=== PATIENT | male | born 1935 | race Caucasian/White ===

== ENCOUNTER 2019-10-28 06:43 | Day surgery (SDC) | payer MEDICARE ==
[~2019-10-28] VITALS: Ht 165.1 cm; Wt 73.6 kg
[~2019-10-28 06:43] MED LIST: ASPI325 PO; ATOR40TA PO; BUDE6HFA INH; CARV3.125 PO; CIPRO500 MG PO; CLOP75 PO; FERR325 PO; FINA5 PO; LISI5 PO; NITR.4SL SL; OXYB5 PO; PANT40 PO; PROAIR DIGIHAL90 MCG INH; Pyridium200 MG PO; SPIR25 PO
[2019-10-28] MEDS ORDERED: Nitroglycerin1 EAC3 TD (07:16)
--- NOTE | 2019-10-28 10:30 | NUR ---
10CC AIR REMOVED FROM TR BAND. -BLEEDING OR SWELLING.
--- NOTE | 2019-10-28 11:29 | NUR ---
R WRIST TR BAND REMOVED. PUNCTURE AREA CLEANED WITH NS AND CLOTH DOT DRSG PLACED. -BLEEDING OR SWELLING. R WRIST SPLINT REAPPLIED. IV REMOVED. PT VERBALIZED UNDERSTANDING OF WRITTEN AND VERBAL D/C INST. PT TAKEN OUT OF THE HRT CENTER VIA W/C.
== END 2019-10-28 13:13 | disposition home or self-care (01) ==
LOC: MHTC 06:43 → ORSCMMR 06:43 → MHTC 07:00
PROC: B201YZZ Plain Radiography of Multiple Coronary Arteries using Other Contrast (ICD-10-PCS; principal; 2019-10-28)
PROC: 4A023N7 Measurement of Cardiac Sampling and Pressure, Left Heart, Percutaneous Approach (ICD-10-PCS; principal; 2019-10-28)
DX: I25.119 Atherosclerotic heart disease of native coronary artery with unspecified angina pectoris (principal); Q24.5 Malformation of coronary vessels; J44.9 Chronic obstructive pulmonary disease, unspecified; Z79.82 Long term (current) use of aspirin; Z95.5 Presence of coronary angioplasty implant and graft; Z87.891 Personal history of nicotine dependence; Z79.899 Other long term (current) drug therapy
CPT/HCPCS: 93458; 99152; C1769; C1894; J1644; J2250; J3010; J7030; Q9967

== ENCOUNTER 2021-01-27 09:55 | Emergency (ER) | payer OTHER, MEDICARE ==
[~2021-01-27] VITALS: Ht 165.1 cm; Wt 73.0 kg
[~2021-01-27 09:55] MED LIST changes: -BUDE6HFA INH; +Nitroglycerin1 EAC3 TD; +SYMBICORT 16010.2 GM INH
[2021-01-27 10:38] LABS: BASOPHILS ABSOLUTE AUTO 0.01 K/mm3 (0.00-0.23); BASOPHILS PERCENT AUTO 0 % (0-2); EOSINOPHILS ABSOLUTE AUTO 0.06 K/mm3 (0.00-0.68); EOSINOPHILS PERCENT AUTO 1 % (0-6); Hematocrit 40.6 % (37.0-53.0); Hemoglobin 13.7 g/dL (13.5-17.5); IMMATURE GRAN ABSOLUTE AUTO 0.02 K/mm3 (0.00-0.10); IMMATURE GRAN PERCENT AUTO 0 % (0-1); LYMPHOCYTES ABSOLUTE AUTO 1.29 K/mm3 (0.84-5.20); LYMPHOCYTES PERCENT AUTO 22 % (21-46); MONOCYTES PERCENT AUTO 8 % (4-13); Mean Corpuscular HGB 32.8 pg (26.0-34.0); Mean Corpuscular HGB Conc 33.7 g/dL (31.5-36.5); Mean Corpuscular Volume 97 fL (80-100); Mean Platelet Volume 10.6 fL (9.1-12.4); NEUTROPHILS ABSOLUTE AUTO 4.13 K/mm3 (1.96-9.15); NEUTROPHILS PERCENT AUTO 69 % (41-73); Platelet Count 182 K/mm3 (150-400); RDW Coefficient Variation 13.2 % (11.7-14.2); RDW Standard Deviation 47.1 fL (35.1-46.3); Red Blood Cell Count 4.18 M/mm3 (4.30-5.90); White Blood Cell Count 6.01 K/mm3 (4.00-11.30)
[2021-01-27 10:55] LABS: Alanine Aminotransfer (ALT/SGP 24 U/L (12-78); Albumin, Blood 3.6 g/dL (3.4-5.0); Alk Phos 67 U/L (50-136); Anion Gap 5 mmol/L (6-16); Aspartate Aminotrans (AST/SGOT 11 U/L (12-37); Bilirubin, Total 0.7 mg/dL (0.1-1.0); Blood Urea Nitrogen 23 mg/dL (8-24); CO2, Blood 25 mmol/L (21-32); Calcium, Blood 8.8 mg/dL (8.5-10.1); Chloride, Blood 109 mmol/L (98-108); Creatinine, Blood 1.44 mg/dL (0.60-1.20); Globulin, Blood 3.6 g/dL (2.2-4.0); Glomerular Filtration Rate 50 (60-); Glucose, Blood 115 mg/dL (70-99); Potassium, Blood 4.2 mmol/L (3.5-5.5); Sodium, Blood 139 mmol/L (136-145); Total Protein, Blood 7.2 g/dL (6.4-8.2); Troponin I <0.015 ng/mL (0.000-0.040)
[2021-01-27] MEDS ORDERED: AZIT500 PO (12:57)
[2021-01-27 13:49] LABS: Adenovirus Not Detected (NOT DETECT); Bordetella pertussis Not Detected (NOT DETECT); Chlamydophila pneumoniae Not Detected (NOT DETECT); Coronavirus 229E Not Detected (NOT DETECT); Coronavirus HKU1 Not Detected (NOT DETECT); Coronavirus NL63 Not Detected (NOT DETECT); Coronavirus OC43 Not Detected (NOT DETECT); Human Metapneumovirus Not Detected (NOT DETECT); Human Rhinovirus/Enterovirus Not Detected (NOT DETECT); Influenza A/2009-H1 Not Detected (NOT DETECT); Influenza A/H1 Not Detected (NOT DETECT); Influenza A/H3 Not Detected (NOT DETECT); Influenza B Not Detected (NOT DETECT); Mycoplasma pneumoniae Not Detected (NOT DETECT); Parainfluenza Virus 1 Not Detected (NOT DETECT); Parainfluenza Virus 2 Not Detected (NOT DETECT); Parainfluenza Virus 3 Not Detected (NOT DETECT); Parainfluenza Virus 4 Not Detected (NOT DETECT); Respiratory Syncytial Virus Not Detected (NOT DETECT); SARS-Cov-2 (COVID-19), BioFire Not Detected (NOT DETECT)
== END 2021-01-27 14:00 | disposition home or self-care (01) ==
LOC: ER 09:55
PROVIDERS: Emergency Medicine; Physician Assistant
DX: R42 Dizziness and giddiness (principal); Z79.82 Long term (current) use of aspirin; Z79.899 Other long term (current) drug therapy; Z20.822 Contact with and (suspected) exposure to COVID-19
CPT/HCPCS: 0202U; 36415; 70450; 71046; 80053; 84484; 85025; 93005; 93010; 96365; 99284-25; A9270; J0696

== ENCOUNTER 2021-04-03 06:51 | Day surgery (SDC) | payer MEDICARE ==
[~2021-04-03] VITALS: Ht 167.6 cm; Wt 73.0 kg
[~2021-04-03 06:51] MED LIST changes: +AZIT500 PO
--- NOTE | 2021-04-03 11:13 | NUR ---
ANCEF 1G IVPB GIVEN.
--- NOTE | 2021-04-03 13:18 | NUR ---
PT C/O CHEST DISCOMFORT AT INCISION SITE, TYLENOL #3 GIVEN 2 TABS PER ORDERS.
--- NOTE | 2021-04-03 14:25 | NUR ---
DR IN TO SEE PATIENT. PRESSURE DRESSING REMOVED BY SOME SWELLING NOTED. NEW PRESSURE DRESSING APPLIED AND PT TO TAKE PRESSURE DRESSING OFF TOMORROW.
--- NOTE | 2021-04-03 14:32 | NUR ---
PT DRESSED WITH MINIMAL ASSIST FOR TOP. UP TO BATHROOM AT THIS TIME. SALINE LOCK REMOVED WITH CATHETER INTACT. PT R ARM PLACED IN SLING.
--- NOTE | 2021-04-03 14:48 | NUR ---
DISCHARGE INSTRUCTIONS REVIEWED WITH PT, VERBALIZES UNDERSTANDING. PT DAUGHTER AT ENTRANCE TO PICK PT UP, INSTRUCTIONS REVIEWED WITH HER WELL. PT INSTRUCTED NO DRIVING UNTIL AT THE VERY LEAST WOUND CHECK APPOINTMENT. PT STATES HE HAS THINGS TO DO, RE-DIRECTION GIVEN ON NO DRIVING. PT TO PRIVATE VEHICLE PER W/C WITH ONE STAFF.
== END 2021-04-03 14:45 | disposition home or self-care (01) ==
LOC: MHTC 06:51
DX: I49.5 Sick sinus syndrome (principal); R55 Syncope and collapse; I25.118 Atherosclerotic heart disease of native coronary artery with other forms of angina pectoris; I11.9 Hypertensive heart disease without heart failure; F17.210 Nicotine dependence, cigarettes, uncomplicated; J44.9 Chronic obstructive pulmonary disease, unspecified; Z95.5 Presence of coronary angioplasty implant and graft
CPT/HCPCS: 33208; 71046; 76937; 99152; 99153; A9270; C1769; C1781; C1785; C1898; J0690; J1644; J2250; J3010; J7030; J7040

== ENCOUNTER 2021-04-16 09:46 | Observation (INO) | payer MEDICARE ==
[~2021-04-16] VITALS: Ht 167.6 cm; Wt 73.5 kg
[~2021-04-16 09:46] MED LIST changes: -FERR325 PO; +FERSU300 PO
[2021-04-16 10:41] LABS: BASOPHILS ABSOLUTE AUTO 0.01 K/mm3 (0.00-0.23); BASOPHILS PERCENT AUTO 0 % (0-2); EOSINOPHILS ABSOLUTE AUTO 0.06 K/mm3 (0.00-0.68); EOSINOPHILS PERCENT AUTO 1 % (0-6); Hematocrit 42.3 % (37.0-53.0); Hemoglobin 14.1 g/dL (13.5-17.5); IMMATURE GRAN ABSOLUTE AUTO 0.03 K/mm3 (0.00-0.10); IMMATURE GRAN PERCENT AUTO 0 % (0-1); LYMPHOCYTES ABSOLUTE AUTO 1.14 K/mm3 (0.84-5.20); LYMPHOCYTES PERCENT AUTO 12 % (21-46); MONOCYTES ABSOLUTE AUTO 0.61 K/mm3 (0.16-1.47); MONOCYTES PERCENT AUTO 6 % (4-13); Mean Corpuscular HGB 32.6 pg (26.0-34.0); Mean Corpuscular HGB Conc 33.3 g/dL (31.5-36.5); Mean Corpuscular Volume 98 fL (80-100); Mean Platelet Volume 9.8 fL (9.1-12.4); NEUTROPHILS ABSOLUTE AUTO 7.61 K/mm3 (1.96-9.15); NEUTROPHILS PERCENT AUTO 81 % (41-73); Platelet Count 214 K/mm3 (150-400); RDW Coefficient Variation 13.1 % (11.7-14.2); RDW Standard Deviation 47.1 fL (35.1-46.3); Red Blood Cell Count 4.33 M/mm3 (4.30-5.90); White Blood Cell Count 9.46 K/mm3 (4.00-11.30)
[2021-04-16 10:53] LABS: Alanine Aminotransfer (ALT/SGP 31 U/L (12-78); Albumin, Blood 3.1 g/dL (3.4-5.0); Albumin/Globulin Ratio 0.8 (0.8-1.8); Alk Phos 72 U/L (50-136); Anion Gap 4 mmol/L (6-16); Aspartate Aminotrans (AST/SGOT 19 U/L (12-37); Bilirubin, Total 0.5 mg/dL (0.1-1.0); Blood Urea Nitrogen 21 mg/dL (8-24); Bun/Creatinine Ratio 17.2 (12.0-20.0); CO2, Blood 26 mmol/L (21-32); Calcium, Blood 8.7 mg/dL (8.5-10.1); Chloride, Blood 111 mmol/L (98-108); Creatinine, Blood 1.22 mg/dL (0.60-1.20); Globulin, Blood 4.1 g/dL (2.2-4.0); Glomerular Filtration Rate 57 (60-); Glucose, Blood 114 mg/dL (70-99); Potassium, Blood 4.2 mmol/L (3.5-5.5); Sodium, Blood 141 mmol/L (136-145); Total Protein, Blood 7.2 g/dL (6.4-8.2); Troponin I <0.015 ng/mL (0.000-0.040)
[2021-04-16] MEDS ORDERED: LISINOPRIL2.5 MG PO (15:54)
[2021-04-16] MEDS ORDERED: Nitroglycerin1 EACH TOP (15:55)
[2021-04-16] MEDS ORDERED: PANTOPRAZOLE SO40 M2 PO (15:55)
--- NOTE | 2021-04-16 18:39 | NUR ---
SHIFT SUMMARY: PATIENT ADMIT FROM ED THIS SHIFT. PT A^O; CALM AND COOPERATIVE WITH CARE. NO C/O PAIN SINCE ARRIVAL ON MEDICAL FLOOR. TELE IN PLACE; SR @ 65 PER SPORTS EDITOR. WCTM.
[2021-04-17 05:14] LABS: BASOPHILS ABSOLUTE AUTO 0.02 K/mm3 (0.00-0.23); BASOPHILS PERCENT AUTO 0 % (0-2); EOSINOPHILS ABSOLUTE AUTO 0.12 K/mm3 (0.00-0.68); EOSINOPHILS PERCENT AUTO 2 % (0-6); Hematocrit 37.3 % (37.0-53.0); Hemoglobin 12.5 g/dL (13.5-17.5); IMMATURE GRAN ABSOLUTE AUTO 0.03 K/mm3 (0.00-0.10); IMMATURE GRAN PERCENT AUTO 0 % (0-1); LYMPHOCYTES ABSOLUTE AUTO 1.35 K/mm3 (0.84-5.20); LYMPHOCYTES PERCENT AUTO 20 % (21-46); MONOCYTES PERCENT AUTO 9 % (4-13); Mean Corpuscular HGB 32.6 pg (26.0-34.0); Mean Corpuscular HGB Conc 33.5 g/dL (31.5-36.5); Mean Corpuscular Volume 97 fL (80-100); Mean Platelet Volume 10.1 fL (9.1-12.4); NEUTROPHILS ABSOLUTE AUTO 4.81 K/mm3 (1.96-9.15); NEUTROPHILS PERCENT AUTO 69 % (41-73); Platelet Count 181 K/mm3 (150-400); RDW Coefficient Variation 13.2 % (11.7-14.2); RDW Standard Deviation 46.8 fL (35.1-46.3); Red Blood Cell Count 3.83 M/mm3 (4.30-5.90); White Blood Cell Count 6.93 K/mm3 (4.00-11.30)
[2021-04-17 05:23] LABS: Bun/Creatinine Ratio 21.6 (12.0-20.0); Calcium, Blood 8.7 mg/dL (8.5-10.1); Creatinine, Blood 1.34 mg/dL (0.60-1.20); Magnesium, Blood 2.3 mg/dL (1.6-2.4); Potassium, Blood 4.2 mmol/L (3.5-5.5)
--- NOTE | 2021-04-17 05:44 | NUR ---
SHIFT SUMMARY PATIENT ALERT AND ORIENTED. HAS HAD INTERMITTENT CHEST PAIN OVERNIGHT. NO COMPLAINTS OF SHORTNESS OF BREATH. PATIENT SLEPT WELL. IV PATENT AND FLUSHED. BED IN LOWEST POSITION WITH WHEELS LOCKED. CALL LIGHT WITHIN REACH. REPORT GIVEN TO ONCOMING RN.
--- NOTE | 2021-04-17 17:18 | NUR ---
SHIFT SUMMARY PATIENT DENIES PAIN AT REST, REPORTS OCCASSIONAL SHARP PAIN IN LEFT CHEST THAT RADIATES TO LOWER RIBS. DENIES NASUEA AND SHORTNESS OF BREATH. PATIENT INDEPENDENT IN ROOM. PATIENT NOW ON A REGULAR DIET. DR. SIERRA CONSULTED. PATIENT TAKEN FOR CHEST CT AT 1730.
--- NOTE | 2021-04-17 18:57 | NUR ---
RECEIVED REPORT AND ASSUMED CARE OF PT. HE IS LYING IN BED, AWAKE, ALERT AND ORIENTED. DENIES ANY NEEDS AT THIS TIME. WCABDIRIZAK.
--- NOTE | 2021-04-18 06:25 | NUR ---
SHIFT SUMMARY: CL IS A&OX4. VSS, NO ACUTE EVENTS OVERNIGHT. HE IS INDEPENDENT IN THE ROOM. HE CONTINUES TO COMPLAIN OF CHEST PAIN BUT REPORTS THAT THE APAP DID HELP ALLEVIATE THE PAIN AND WONDERS IF IT IS MUSCLE PAIN AND IF A MUSCLE RELAXER MIGHT HELP. HE IS URINATING WITHOUT DIFFICULTY, TOLERATING PO INTAKE WELL, AND HAS NOT HAD ANY EVENTS ON TELEMETRY THIS SHIFT. HE IS LYING IN BED WITH THE CALL LIGHT IN REACH. WILL REPORT TO DAY SHIFT RN.
--- NOTE | 2021-04-18 18:28 | NUR ---
PT QUITE PLEASANT TODAY. TRIED TYLENOL LAST SHIFT, NAPROXEN THIS AM, AND MOBIC THIS AFT. PT REPORTS NO IMPROVEMENT ON PAIN. STATES REMAINS OKAY OVERALL, BUT CONTINUES TO HAVE SHARP STABBING PAINS IF/WHEN TRIES TO SIT UP. TRIED THIS WITH HAVING THE BED USE ALL THE LIFTING, PT NOT USING MUSCLES. STATES STILL DOES HAVE PAIN WITH SITTING UP. NO NEW CONCERNS NOTED BED IN LOW POSITION, CALL LITE IN REACH, CALLS APPROP
--- NOTE | 2021-04-19 05:46 | NUR ---
SHIFT SUMMARY- PT. A&OX4, PLEASANT AND COOPERATIVE WITH CARE, AMBULATORY IN THE ROOM. HAD COMPLAINTS OF L SIDED CHEST PAIN 12/22. MEDICATED WITH TYLENOL PER EMAR. PT. REPORTED GOOD RELIEF. APPEARED TO HAVE RESTED COMFORTABLY T/O THE NIGHT, NO APPARENT DISTRESS NOTED AND DENIED ANY NEEDS. THIS AM REQUESTED PAIN MED FOR MINIMAL PAIN, NAPROXEN GIVEN PER EMAR. PT. RESTING QUIETLY IN BED, VSS. CALL LIGHT WITHIN REACH AND SIDE RAILS UPX2. WILL CONT TO MONITOR.
[2021-04-19 05:51] LABS: BASOPHILS ABSOLUTE AUTO 0.03 K/mm3 (0.00-0.23); BASOPHILS PERCENT AUTO 1 % (0-2); EOSINOPHILS ABSOLUTE AUTO 0.13 K/mm3 (0.00-0.68); EOSINOPHILS PERCENT AUTO 2 % (0-6); Hematocrit 37.4 % (37.0-53.0); Hemoglobin 12.6 g/dL (13.5-17.5); IMMATURE GRAN ABSOLUTE AUTO 0.01 K/mm3 (0.00-0.10); IMMATURE GRAN PERCENT AUTO 0 % (0-1); LYMPHOCYTES ABSOLUTE AUTO 1.19 K/mm3 (0.84-5.20); LYMPHOCYTES PERCENT AUTO 20 % (21-46); MONOCYTES ABSOLUTE AUTO 0.51 K/mm3 (0.16-1.47); MONOCYTES PERCENT AUTO 9 % (4-13); Mean Corpuscular HGB 32.5 pg (26.0-34.0); Mean Corpuscular HGB Conc 33.7 g/dL (31.5-36.5); Mean Corpuscular Volume 96 fL (80-100); Mean Platelet Volume 10.6 fL (9.1-12.4); NEUTROPHILS ABSOLUTE AUTO 3.97 K/mm3 (1.96-9.15); NEUTROPHILS PERCENT AUTO 68 % (41-73); Platelet Count 195 K/mm3 (150-400); RDW Standard Deviation 46.1 fL (35.1-46.3); Red Blood Cell Count 3.88 M/mm3 (4.30-5.90); White Blood Cell Count 5.84 K/mm3 (4.00-11.30)
[2021-04-19 06:11] LABS: Bun/Creatinine Ratio 19.2 (12.0-20.0); Calcium, Blood 8.3 mg/dL (8.5-10.1); Creatinine, Blood 1.25 mg/dL (0.60-1.20); Potassium, Blood 4.3 mmol/L (3.5-5.5)
--- NOTE | 2021-04-19 10:33 | NUR ---
PT STATES PAIN ONLY SLIGHTLY BETTER THAN YEST. COMES AND GOES. UNDER L NIPPLE FOR AREA. PRESENTS MOSTLY WHEN HE SITS UP . WHEN AT REST MOSTLY NOT AWARE OF MUCH PAIN. NO FEELING OF HEART PAIN, PRESSURE. PER TELE, S ZAIRA AT 59. SOME OCC PACER SPIKES. LUNGS CLEAR, RESP EASY, UNLABORED. ON R.A. BT X4 LAST BM TODAY, STATES NORMAL . VIODS BATHROOM. INDEPENDANT ON ROOM. BED IN LOW POSITION, CALL LITE IN REACH, CALLS APPROP
[2021-04-19] MEDS ORDERED: NAPR500 PO (14:59)
[2021-04-19] MEDS ORDERED: ASPI81CH PO (15:03)
--- NOTE | 2021-04-19 15:49 | NUR ---
PT DISCHARGE REVIEWED DC INTRUCTIONS WITH PT- PT VERB UNDERSTANDING. NEW MEDS FAXED TO [facility]. PT BELONGINGS WITH PT. PT DECLINES WC RIDE OUT. AMBULATES IND TO PRIVATE VEHICLE ESCORTED BY THIS RN TO DOORS.
--- NOTE | 2021-04-19 16:26 | NUR ---
Update 04/19/21: Per chart review with Dr. Knight, pt. appropriate for discharge today. Discussed discharge planning with pt. He has transportation home from family and someone to pickler helper medications. He denies barriers to discharge or concerns with care. No additional needs. Pt. is scheduled for a hospital f/u appointment on 04/23/21 at 12:20 PM. with Elaina JORDAN.
== END 2021-04-19 15:47 | disposition home or self-care (01) ==
LOC: ER 09:46 → MEDS 09:47 → ER 17:13 → MEDS 17:13 → ENPENDDIS 04-19 14:22 → MEDS 04-19 15:47
PROVIDERS: Physician Assistant; ADMIT Internal Medicine
DX: R07.89 Other chest pain (principal); I12.9 Hypertensive chronic kidney disease with stage 1 through stage 4 chronic kidney disease, or unspecified chronic kidney disease; N17.9 Acute kidney failure, unspecified; N18.30 Chronic kidney disease, stage 3 unspecified; I25.10 Atherosclerotic heart disease of native coronary artery without angina pectoris; I25.2 Old myocardial infarction; I49.5 Sick sinus syndrome; E78.5 Hyperlipidemia, unspecified; J44.9 Chronic obstructive pulmonary disease, unspecified; Z95.5 Presence of coronary angioplasty implant and graft; J94.8 Other specified pleural conditions; Z45.010 Encounter for checking and testing of cardiac pacemaker pulse generator [battery]; Z79.82 Long term (current) use of aspirin; Z95.820 Peripheral vascular angioplasty status with implants and grafts; Z77.090 Contact with and (suspected) exposure to asbestos; Z66 Do not resuscitate; Z87.891 Personal history of nicotine dependence
CPT/HCPCS: 36415; 71046; 71260; 80048; 80053; 83690; 83735; 83880; 84484; 85025; 93005; 93010; 93308; 93321; 96372; 96374; 99285-25; A9270; G0378; J1650; J1885; J7030; Q9967

== ENCOUNTER 2021-06-05 10:22 | Day surgery (SDC) | payer MEDICARE ==
[~2021-06-05] VITALS: Ht 167.6 cm; Wt 74.0 kg
[~2021-06-05 10:22] MED LIST changes: +ASPI81CH PO; +LISINOPRIL2.5 MG PO; +NAPR500 PO; +Nitroglycerin1 EACH TOP; +PANTOPRAZOLE SO40 M2 PO
[2021-06-05] MEDS ORDERED: NITRO-DUR1 EAC1 TOP (12:33)
--- NOTE | 2021-06-05 12:43 | NUR ---
CALL LIGHT IN REACH.
--- NOTE | 2021-06-05 18:20 | NUR ---
ECHO AND CT OF CHEST COMPLETED. CD OF ECHO AND LEAD REVISION [facility] CALLED AT 1750. FACE SHEET AND COVID TEST RESULTS FAXED TO [facility].
--- NOTE | 2021-06-05 18:25 | NUR ---
REPORT CALLED TO GUERITA AT [facility]. [facility] HERE TO TRANSFER TO [facility]. CHART CD AND TRANSFER SUMMARY SENT WITH PATIENT.
== END 2021-06-05 18:35 | disposition short-term general hospital (02) ==
LOC: MHTC 10:22
DX: T82.110A Breakdown (mechanical) of cardiac electrode, initial encounter (principal); I49.5 Sick sinus syndrome; I25.10 Atherosclerotic heart disease of native coronary artery without angina pectoris; I25.2 Old myocardial infarction; J44.9 Chronic obstructive pulmonary disease, unspecified; J92.9 Pleural plaque without asbestos; I10 Essential (primary) hypertension; E78.5 Hyperlipidemia, unspecified; Z95.820 Peripheral vascular angioplasty status with implants and grafts; Z95.5 Presence of coronary angioplasty implant and graft; Y71.2 Prosthetic and other implants, materials and accessory cardiovascular devices associated with adverse incidents; Z87.891 Personal history of nicotine dependence
CPT/HCPCS: 33215; 71250; 93308; 99152; 99153; J0690; J1644; J2250; J3010; J7030; J7040

== ENCOUNTER 2021-06-26 14:13 | Emergency (ER) | payer MEDICARE ==
[~2021-06-26] VITALS: Ht 165.1 cm; Wt 73.9 kg
[~2021-06-26 14:13] MED LIST changes: +NITRO-DUR1 EAC1 TOP
[2021-06-26] MEDS ORDERED: TRAZ50 PO (14:51)
[2021-06-26] MEDS ORDERED: PANTOPRAZOLE SO40 M2 PO (14:52)
[2021-06-26 14:53] LABS: BASOPHILS ABSOLUTE AUTO 0.02 K/mm3 (0.00-0.23); BASOPHILS PERCENT AUTO 0 % (0-2); EOSINOPHILS ABSOLUTE AUTO 0.01 K/mm3 (0.00-0.68); EOSINOPHILS PERCENT AUTO 0 % (0-6); Hematocrit 38.1 % (37.0-53.0); IMMATURE GRAN ABSOLUTE AUTO 0.03 K/mm3 (0.00-0.10); IMMATURE GRAN PERCENT AUTO 0 % (0-1); LYMPHOCYTES ABSOLUTE AUTO 0.93 K/mm3 (0.84-5.20); LYMPHOCYTES PERCENT AUTO 11 % (21-46); MONOCYTES ABSOLUTE AUTO 0.55 K/mm3 (0.16-1.47); MONOCYTES PERCENT AUTO 7 % (4-13); Mean Corpuscular HGB 33.1 pg (26.0-34.0); Mean Corpuscular HGB Conc 34.1 g/dL (31.5-36.5); Mean Corpuscular Volume 97 fL (80-100); Mean Platelet Volume 10.2 fL (9.1-12.4); NEUTROPHILS ABSOLUTE AUTO 6.76 K/mm3 (1.96-9.15); NEUTROPHILS PERCENT AUTO 82 % (41-73); Platelet Count 167 K/mm3 (150-400); RDW Coefficient Variation 13.2 % (11.7-14.2); RDW Standard Deviation 47.9 fL (35.1-46.3); Red Blood Cell Count 3.93 M/mm3 (4.30-5.90)
[2021-06-26] MEDS ORDERED: Lisinopril2.5 MG PO (14:54)
[2021-06-26 15:12] LABS: Alanine Aminotransfer (ALT/SGP 19 U/L (12-78); Albumin/Globulin Ratio 0.9 (0.8-1.8); Alk Phos 62 U/L (50-136); Anion Gap 7 mmol/L (6-16); Aspartate Aminotrans (AST/SGOT 11 U/L (12-37); Bilirubin, Total 0.6 mg/dL (0.1-1.0); Blood Urea Nitrogen 31 mg/dL (8-24); Bun/Creatinine Ratio 16.8 (12.0-20.0); CO2, Blood 23 mmol/L (21-32); Calcium, Blood 8.7 mg/dL (8.5-10.1); Chloride, Blood 112 mmol/L (98-108); Creatinine, Blood 1.85 mg/dL (0.60-1.20); Globulin, Blood 3.5 g/dL (2.2-4.0); Glomerular Filtration Rate 35 (60-); Glucose, Blood 126 mg/dL (70-99); Sodium, Blood 142 mmol/L (136-145); Total Protein, Blood 6.5 g/dL (6.4-8.2); Troponin I <0.015 ng/mL (0.000-0.040)
== END 2021-06-26 20:25 | disposition home or self-care (01) ==
LOC: ER 14:13
PROVIDERS: Emergency Medicine
DX: R55 Syncope and collapse (principal); R00.0 Tachycardia, unspecified; I25.10 Atherosclerotic heart disease of native coronary artery without angina pectoris; J44.9 Chronic obstructive pulmonary disease, unspecified; E78.5 Hyperlipidemia, unspecified; I25.2 Old myocardial infarction; Z87.891 Personal history of nicotine dependence; Z79.82 Long term (current) use of aspirin; Z79.899 Other long term (current) drug therapy; Z95.0 Presence of cardiac pacemaker
CPT/HCPCS: 36415; 71045; 80053; 83880; 84484; 85025; 93005; 93010; 96360; 99285-25; J7030

== ENCOUNTER 2024-04-10 13:12 | Emergency (ER) | payer MEDICARE ==
[~2024-04-10] VITALS: Ht 172.7 cm; Wt 79.4 kg
[~2024-04-10 13:12] MED LIST changes: +Lisinopril2.5 MG PO; +TRAZ50 PO
[2024-04-10] MEDS ORDERED: NS 1,000 ML IV SCH (14:00)
[2024-04-10 14:07] LABS: BASOPHILS ABSOLUTE AUTO 0.03 K/mm3 (0.00-0.23); BASOPHILS PERCENT AUTO 0 % (0-2); EOSINOPHILS ABSOLUTE AUTO 0.04 K/mm3 (0.00-0.68); EOSINOPHILS PERCENT AUTO 0 % (0-6); Hematocrit 40.8 % (37.0-53.0); Hemoglobin 14.1 g/dL (13.5-17.5); IMMATURE GRAN ABSOLUTE AUTO 0.04 K/mm3 (0.00-0.10); IMMATURE GRAN PERCENT AUTO 0 % (0-1); LYMPHOCYTES ABSOLUTE AUTO 0.97 K/mm3 (0.84-5.20); LYMPHOCYTES PERCENT AUTO 11 % (21-46); MONOCYTES ABSOLUTE AUTO 0.68 K/mm3 (0.16-1.47); MONOCYTES PERCENT AUTO 8 % (4-13); Mean Corpuscular HGB 32.7 pg (26.0-34.0); Mean Corpuscular HGB Conc 34.6 g/dL (31.5-36.5); Mean Corpuscular Volume 95 fL (80-100); NEUTROPHILS ABSOLUTE AUTO 7.36 K/mm3 (1.96-9.15); NEUTROPHILS PERCENT AUTO 81 % (41-73); Platelet Count 167 K/mm3 (150-400); RDW Coefficient Variation 13.2 % (11.7-14.2); RDW Standard Deviation 46.3 fL (35.1-46.3); Red Blood Cell Count 4.31 M/mm3 (4.30-5.90); White Blood Cell Count 9.12 K/mm3 (4.00-11.30)
[2024-04-10 14:20] VITALS: BP 98/68
[2024-04-10 14:23] LABS: Albumin, Blood 3.5 g/dL (3.4-5.0); Albumin/Globulin Ratio 1.1 (0.8-1.8); Bilirubin, Total 0.6 mg/dL (0.1-1.0); Bun/Creatinine Ratio 22.5 (12.0-20.0); Creatinine, Blood 1.42 mg/dL (0.60-1.20); Globulin, Blood 3.1 g/dL (2.2-4.0); Potassium, Blood 4.9 mmol/L (3.5-5.5); Total Protein, Blood 6.6 g/dL (6.4-8.2)
[2024-04-10 15:21] LABS: Source, Urine Voided
[2024-04-10 15:24] LABS: Appearance, Urine Clear (Clear); Bilirubin, Urine Neg (Neg); Blood, Urine 2+ (Neg); Color, Urine Yellow (P-Yellow); Glucose Qualitative, Urine Neg (Neg); Ketones, Urine Neg (Neg); Leukocyte Esterase, Urine Neg (Neg); Nitrite, Urine Neg (Neg); Protein, Urine Neg (Neg); Specific Gravity, Urine 1.015 (1.003-1.022); Urobilinogen, Urine NORM (Normal)
[2024-04-10 15:31] LABS: Bacteria Not Seen /hpf; Squamous Epithelial Cells Not Seen /hpf (Few); White Blood Cells, Urine 0-2 /hpf (0-5)
== END 2024-04-10 15:48 | disposition home or self-care (01) ==
LOC: ER 13:12
PROVIDERS: Emergency Medicine
DX: R53.1 Weakness (principal); E86.0 Dehydration; N18.9 Chronic kidney disease, unspecified; J44.9 Chronic obstructive pulmonary disease, unspecified; E78.5 Hyperlipidemia, unspecified; I25.2 Old myocardial infarction; Z87.891 Personal history of nicotine dependence; Z79.82 Long term (current) use of aspirin; Z79.899 Other long term (current) drug therapy
CPT/HCPCS: 80053; 81001; 83735; 85025; 93005; 93010; 96360; 99284-25; J7030

== ENCOUNTER 2024-07-10 17:58 | Emergency (ER) | payer MEDICARE ==
[~2024-07-10] VITALS: Ht 167.6 cm; Wt 72.6 kg
[2024-07-10 18:28] LABS: BASOPHILS ABSOLUTE AUTO 0.03 K/mm3 (0.00-0.23); BASOPHILS PERCENT AUTO 0 % (0-2); EOSINOPHILS ABSOLUTE AUTO 0.11 K/mm3 (0.00-0.68); EOSINOPHILS PERCENT AUTO 1 % (0-6); Hematocrit 40.9 % (37.0-53.0); IMMATURE GRAN ABSOLUTE AUTO 0.03 K/mm3 (0.00-0.10); IMMATURE GRAN PERCENT AUTO 0 % (0-1); LYMPHOCYTES ABSOLUTE AUTO 1.02 K/mm3 (0.84-5.20); LYMPHOCYTES PERCENT AUTO 10 % (21-46); MONOCYTES ABSOLUTE AUTO 0.64 K/mm3 (0.16-1.47); MONOCYTES PERCENT AUTO 6 % (4-13); Mean Corpuscular HGB 32.6 pg (26.0-34.0); Mean Corpuscular HGB Conc 34.2 g/dL (31.5-36.5); Mean Corpuscular Volume 95 fL (80-100); Mean Platelet Volume 9.3 fL (9.1-12.4); NEUTROPHILS ABSOLUTE AUTO 8.66 K/mm3 (1.96-9.15); NEUTROPHILS PERCENT AUTO 83 % (41-73); Platelet Count 178 K/mm3 (150-400); RDW Coefficient Variation 13.3 % (11.7-14.2); White Blood Cell Count 10.49 K/mm3 (4.00-11.30)
[2024-07-10] MEDS ORDERED: STIOLTO RESPIMAT4 G1 IH (18:38)
[2024-07-10] MEDS ORDERED: TAMS.4ER PO (18:38)
[2024-07-10 18:47] LABS: Albumin, Blood 3.3 g/dL (3.4-5.0); Albumin/Globulin Ratio 1.1 (0.8-1.8); Bilirubin, Total 1.1 mg/dL (0.1-1.0); Bun/Creatinine Ratio 13.6 (12.0-20.0); Calcium, Blood 8.3 mg/dL (8.5-10.1); Creatinine, Blood 1.25 mg/dL (0.60-1.20); Globulin, Blood 3.1 g/dL (2.2-4.0); Potassium, Blood 4.3 mmol/L (3.5-5.5); Total Protein, Blood 6.4 g/dL (6.4-8.2)
[2024-07-10 19:30] VITALS: BP 155/72
== END 2024-07-10 19:38 | disposition home or self-care (01) ==
LOC: ER 17:58
PROVIDERS: Emergency Medicine
DX: R07.89 Other chest pain (principal); R55 Syncope and collapse; J44.9 Chronic obstructive pulmonary disease, unspecified; E78.5 Hyperlipidemia, unspecified; Z87.891 Personal history of nicotine dependence; Z79.82 Long term (current) use of aspirin; Z79.899 Other long term (current) drug therapy
CPT/HCPCS: 71046; 80053; 84484; 85025; 93005; 93010; 99284-25

== ENCOUNTER 2024-08-10 13:10 | Emergency (ER) | payer MEDICARE, OTHER ==
[~2024-08-10] VITALS: Ht 172.7 cm; Wt 72.6 kg
[~2024-08-10 13:10] MED LIST changes: +STIOLTO RESPIMAT4 G1 IH; +TAMS.4ER PO
[2024-08-10 13:49] LABS: BASOPHILS ABSOLUTE AUTO 0.02 K/mm3 (0.00-0.23); BASOPHILS PERCENT AUTO 0 % (0-2); EOSINOPHILS ABSOLUTE AUTO 0.06 K/mm3 (0.00-0.68); EOSINOPHILS PERCENT AUTO 1 % (0-6); Hematocrit 39.6 % (37.0-53.0); Hemoglobin 13.4 g/dL (13.5-17.5); IMMATURE GRAN ABSOLUTE AUTO 0.03 K/mm3 (0.00-0.10); IMMATURE GRAN PERCENT AUTO 0 % (0-1); LYMPHOCYTES ABSOLUTE AUTO 0.81 K/mm3 (0.84-5.20); LYMPHOCYTES PERCENT AUTO 10 % (21-46); MONOCYTES ABSOLUTE AUTO 0.51 K/mm3 (0.16-1.47); MONOCYTES PERCENT AUTO 6 % (4-13); Mean Corpuscular HGB 32.7 pg (26.0-34.0); Mean Corpuscular HGB Conc 33.8 g/dL (31.5-36.5); Mean Corpuscular Volume 97 fL (80-100); Mean Platelet Volume 10.3 fL (9.1-12.4); NEUTROPHILS ABSOLUTE AUTO 6.57 K/mm3 (1.96-9.15); NEUTROPHILS PERCENT AUTO 82 % (41-73); Platelet Count 176 K/mm3 (150-400); RDW Coefficient Variation 13.5 % (11.7-14.2)
[2024-08-10 13:56] LABS: Bun/Creatinine Ratio 11.8 (12.0-20.0); Creatinine, Blood 1.27 mg/dL (0.60-1.20); Potassium, Blood 4.6 mmol/L (3.5-5.5)
[2024-08-10 14:30] VITALS: BP 140/68
== END 2024-08-10 14:42 | disposition home or self-care (01) ==
LOC: ER 13:10
PROVIDERS: Student in an Organized Health Care Education/Training Program
DX: R55 Syncope and collapse (principal); J44.9 Chronic obstructive pulmonary disease, unspecified; E78.5 Hyperlipidemia, unspecified; Z87.891 Personal history of nicotine dependence; Z79.82 Long term (current) use of aspirin; Z79.899 Other long term (current) drug therapy
CPT/HCPCS: 80048; 85025; 93005; 93010; 99284-25

== ENCOUNTER → 2024-08-24 | Outpatient (CLI) | payer MEDICARE, OTHER ==
[2024-08-25 15:34] LABS: Appearance, Urine Clear (Clear); Bilirubin, Urine Neg (Neg); Blood, Urine Neg (Neg); Glucose Qualitative, Urine Neg (Neg); Ketones, Urine Neg (Neg); Leukocyte Esterase, Urine Neg (Neg); Nitrite, Urine Neg (Neg); Protein, Urine Neg (Neg); Specific Gravity, Urine 1.005 (1.003-1.022); Urobilinogen, Urine NORM (Normal)
[2024-08-25 15:46] LABS: Color, Urine Pale Yellow (P-Yellow)
== END | disposition home or self-care (01) ==
LOC: LAB 07:00 → LAB SHORT 07:00
PROVIDERS: Student in an Organized Health Care Education/Training Program
DX: N39.0 Urinary tract infection, site not specified (principal)
CPT/HCPCS: 81003; 87086

== ENCOUNTER 2024-09-02 01:10 | Emergency (ER) | payer OTHER, MEDICARE ==
[~2024-09-02] VITALS: Ht 182.9 cm; Wt 90.7 kg
[2024-09-02 01:43] LABS: BASOPHILS ABSOLUTE AUTO 0.01 K/mm3 (0.00-0.23); BASOPHILS PERCENT AUTO 0 % (0-2); EOSINOPHILS PERCENT AUTO 0 % (0-6); Hematocrit 37.2 % (37.0-53.0); Hemoglobin 13.4 g/dL (13.5-17.5); IMMATURE GRAN ABSOLUTE AUTO 0.02 K/mm3 (0.00-0.10); IMMATURE GRAN PERCENT AUTO 0 % (0-1); LYMPHOCYTES PERCENT AUTO 8 % (21-46); MONOCYTES ABSOLUTE AUTO 0.71 K/mm3 (0.16-1.47); MONOCYTES PERCENT AUTO 12 % (4-13); Mean Corpuscular HGB 33.3 pg (26.0-34.0); Mean Corpuscular Volume 93 fL (80-100); Mean Platelet Volume 10.2 fL (9.1-12.4); NEUTROPHILS ABSOLUTE AUTO 4.73 K/mm3 (1.96-9.15); NEUTROPHILS PERCENT AUTO 79 % (41-73); Platelet Count 129 K/mm3 (150-400); RDW Coefficient Variation 12.5 % (11.7-14.2); RDW Standard Deviation 42.7 fL (35.1-46.3); Red Blood Cell Count 4.02 M/mm3 (4.30-5.90); White Blood Cell Count 5.97 K/mm3 (4.00-11.30)
[2024-09-02 02:04] LABS: Albumin/Globulin Ratio 0.8 (0.8-1.8); Bilirubin, Total 1.3 mg/dL (0.1-1.0); Bun/Creatinine Ratio 17.4 (12.0-20.0); Calcium, Blood 8.2 mg/dL (8.5-10.1); Creatinine, Blood 1.21 mg/dL (0.60-1.20); Globulin, Blood 3.6 g/dL (2.2-4.0); Potassium, Blood 4.2 mmol/L (3.5-5.5); Total Protein, Blood 6.6 g/dL (6.4-8.2)
[2024-09-02 07:48] VITALS: BP 153/94
== END 2024-09-02 07:48 | disposition home or self-care (01) ==
LOC: ER 01:10
PROVIDERS: Emergency Medicine
DX: Z04.3 Encounter for examination and observation following other accident (principal); F03.90 Unspecified dementia, unspecified severity, without behavioral disturbance, psychotic disturbance, mood disturbance, and anxiety; E78.5 Hyperlipidemia, unspecified; I25.10 Atherosclerotic heart disease of native coronary artery without angina pectoris; I49.5 Sick sinus syndrome; J44.9 Chronic obstructive pulmonary disease, unspecified; U07.1 COVID-19; Z95.0 Presence of cardiac pacemaker; Z87.891 Personal history of nicotine dependence; Z79.82 Long term (current) use of aspirin; Z79.899 Other long term (current) drug therapy; W19.XXXA Unspecified fall, initial encounter; Y92.091 Bathroom in other non-institutional residence as the place of occurrence of the external cause
CPT/HCPCS: 70450; 72125; 80053; 84484; 85025; 93005; 93010; 99284-25

== ENCOUNTER 2024-09-04 14:00 | Emergency (ER) | payer MEDICARE, OTHER ==
[~2024-09-04] VITALS: Ht 167.6 cm; Wt 49.9 kg
[2024-09-04 16:09] LABS: BASOPHILS ABSOLUTE AUTO 0.01 K/mm3 (0.00-0.23); BASOPHILS PERCENT AUTO 0 % (0-2); EOSINOPHILS PERCENT AUTO 0 % (0-6); Hematocrit 35.6 % (37.0-53.0); Hemoglobin 12.7 g/dL (13.5-17.5); IMMATURE GRAN ABSOLUTE AUTO 0.04 K/mm3 (0.00-0.10); IMMATURE GRAN PERCENT AUTO 1 % (0-1); LYMPHOCYTES ABSOLUTE AUTO 0.63 K/mm3 (0.84-5.20); LYMPHOCYTES PERCENT AUTO 11 % (21-46); MONOCYTES ABSOLUTE AUTO 0.64 K/mm3 (0.16-1.47); MONOCYTES PERCENT AUTO 11 % (4-13); Mean Corpuscular HGB 33.3 pg (26.0-34.0); Mean Corpuscular HGB Conc 35.7 g/dL (31.5-36.5); Mean Corpuscular Volume 93 fL (80-100); Mean Platelet Volume 9.5 fL (9.1-12.4); NEUTROPHILS ABSOLUTE AUTO 4.64 K/mm3 (1.96-9.15); NEUTROPHILS PERCENT AUTO 78 % (41-73); Platelet Count 160 K/mm3 (150-400); RDW Coefficient Variation 12.7 % (11.7-14.2); RDW Standard Deviation 43.8 fL (35.1-46.3); Red Blood Cell Count 3.81 M/mm3 (4.30-5.90); White Blood Cell Count 5.96 K/mm3 (4.00-11.30)
[2024-09-04 16:22] LABS: Free Thyroxine 1.56 ng/dL (0.70-1.60)
[2024-09-04 16:26] LABS: Albumin, Blood 2.4 g/dL (3.4-5.0); Albumin/Globulin Ratio 0.7 (0.8-1.8); Bilirubin, Total 1.1 mg/dL (0.1-1.0); Bun/Creatinine Ratio 26.5 (12.0-20.0); Calcium, Blood 7.8 mg/dL (8.5-10.1); Creatinine, Blood 1.17 mg/dL (0.60-1.20); Globulin, Blood 3.6 g/dL (2.2-4.0); Potassium, Blood 3.7 mmol/L (3.5-5.5); Thyroid Stimulating Hormone 1.02 uIU/mL (0.360-4.800)
[2024-09-04] MEDS ORDERED: Calcium Carbonate 500 MG Tab Chew PO ONE (17:40)
[2024-09-04 18:00] VITALS: BP 136/62
== END 2024-09-04 18:00 | disposition home or self-care (01) ==
LOC: ER 14:00
PROVIDERS: Emergency Medicine
DX: U07.1 COVID-19 (principal); J12.82 Pneumonia due to coronavirus disease 2019; E83.51 Hypocalcemia; E78.5 Hyperlipidemia, unspecified; Z79.82 Long term (current) use of aspirin; Z79.899 Other long term (current) drug therapy
CPT/HCPCS: 70450; 71045; 80053; 82330; 84439; 84443; 85025; 93005; 93010; 99285-25; A9270

== ENCOUNTER 2024-09-05 04:52 | Inpatient (IN) | payer MEDICARE, OTHER ==
[~2024-09-05] VITALS: Ht 170.2 cm; Wt 75.0 kg
[2024-09-05] MEDS ORDERED: NS 1,000 ML IV SCH ×2 (05:25→07:45)
[2024-09-05 05:56] LABS: BASOPHILS ABSOLUTE AUTO 0.01 K/mm3 (0.00-0.23); BASOPHILS PERCENT AUTO 0 % (0-2); EOSINOPHILS ABSOLUTE AUTO 0.01 K/mm3 (0.00-0.68); EOSINOPHILS PERCENT AUTO 0 % (0-6); Hematocrit 29.7 % (37.0-53.0); Hemoglobin 10.7 g/dL (13.5-17.5); IMMATURE GRAN ABSOLUTE AUTO 0.03 K/mm3 (0.00-0.10); IMMATURE GRAN PERCENT AUTO 1 % (0-1); LYMPHOCYTES ABSOLUTE AUTO 0.58 K/mm3 (0.84-5.20); LYMPHOCYTES PERCENT AUTO 10 % (21-46); MONOCYTES ABSOLUTE AUTO 0.71 K/mm3 (0.16-1.47); MONOCYTES PERCENT AUTO 13 % (4-13); Mean Corpuscular HGB 33.8 pg (26.0-34.0); Mean Corpuscular Volume 94 fL (80-100); Mean Platelet Volume 9.7 fL (9.1-12.4); NEUTROPHILS ABSOLUTE AUTO 4.22 K/mm3 (1.96-9.15); NEUTROPHILS PERCENT AUTO 76 % (41-73); Platelet Count 157 K/mm3 (150-400); RDW Coefficient Variation 12.7 % (11.7-14.2); RDW Standard Deviation 43.9 fL (35.1-46.3); Red Blood Cell Count 3.17 M/mm3 (4.30-5.90); White Blood Cell Count 5.56 K/mm3 (4.00-11.30)
[2024-09-05] MEDS ORDERED: Pantoprazole Sodium 40 MG Injection IV ONE (06:05)
[2024-09-05] MEDS ORDERED: Pantoprazole Sodium 40 MG in NS 50 ML IV SCH (06:05)
[2024-09-05 06:32] LABS: Albumin, Blood 2.1 g/dL (3.4-5.0); Albumin/Globulin Ratio 0.7 (0.8-1.8); Bilirubin, Total 0.8 mg/dL (0.1-1.0); Bun/Creatinine Ratio 39.7 (12.0-20.0); Creatinine, Blood 1.16 mg/dL (0.60-1.20); Globulin, Blood 3.1 g/dL (2.2-4.0); Potassium, Blood 4.2 mmol/L (3.5-5.5); Total Protein, Blood 5.2 g/dL (6.4-8.2)
[2024-09-05 07:08] LABS: International Normalized Ratio 1.04; Prothrombin Time Results 11.1 Sec (9.7-11.5)
[2024-09-05 07:23] LABS: CORONAVIRUS COVID-19 AG Negative (NEGATIVE); INFLUENZA A AG Negative (NEGATIVE); INFLUENZA B AG Negative (NEGATIVE)
[2024-09-05] MEDS ORDERED: FLU VACC TS2024-25(6MOS UP)/PF 45 MCG/0.5 ML SYRINGE IM ONE (07:45)
[2024-09-05 11:58] LABS: Hematocrit 29.6 % (37.0-53.0); Hemoglobin 10.7 g/dL (13.5-17.5); Mean Corpuscular HGB 33.6 pg (26.0-34.0); Mean Corpuscular HGB Conc 36.1 g/dL (31.5-36.5); Mean Corpuscular Volume 93 fL (80-100); Mean Platelet Volume 9.5 fL (9.1-12.4); Platelet Count 164 K/mm3 (150-400); RDW Coefficient Variation 12.7 % (11.7-14.2); RDW Standard Deviation 44.2 fL (35.1-46.3); Red Blood Cell Count 3.18 M/mm3 (4.30-5.90); White Blood Cell Count 5.25 K/mm3 (4.00-11.30)
[2024-09-05 15:32] VITALS: BP 104/57
[2024-09-05] MEDS ORDERED: TIOTROPIUM OLODATEROL INH SCH (16:20)
--- NOTE | 2024-09-05 18:45 | NUR ---
CALL FROM PATIENT'S DAUGHTER, LUIS MANUEL BRADLEY. SHE IS LEAVING TOWN TOMORROW AND WILL BE IN [place] FOR THE HOLIDAY. PLEASE NOTIFY HER IF HE IS DISCHARGING. SHE ALSO SAID SHE BELIEVES HE IS SUPPOSED TO BE A DNR AND NOT A FULL CODE. NO MAR OR POLST RECEIVED. CALL TO [facility] AND SPOKE WITH SARAH, WHO WILL FAX COPY OF MAR AND POLST TO MEDICAL FLOOR FAX MACHINE.
[2024-09-05 19:50] VITALS: BP 100/67
--- NOTE | 2024-09-05 19:55 | NUR ---
END OF SHIFT SUMMARY: A&Ox3-4 WITH INTERMITTENT CONFUSION, BUT EASILY REDIRECTABLE. PLEASANT AND COOPERATIVE WITH CARE. CALLS APPROPRIATELY AND IS ABLE TO ADVOCATE NEEDS EFFECTIVELY. CONTINENT OF WITH URINAL USE. LBM IN ED TODAY (09/05). AMBULATES INDEPENDENTLY WITH WALKER AT [facility], BUT HAS NOT BEEN ABLE TO AMBULATE INDEPENDENTLY IN ABOUT A WEEK, PER DAUGHTER. HAS BEEN USING WHEELCHAIR FOR AMBULATION x7 DAYS. NO C/O PAIN OR DISCOMFORT. NS @ 50mL/hr RAC. LIVES AT [facility]. DAUGHTER WONDERING IF HE NEEDS SNF PRIOR TO RETURNIN TO [facility] TO MULTIPLE, FREQUENT FALLS OF LATE. BED IN LOWEST POSITION, CALL LIGHT WITHIN REACH, ALL NEEDS MET. REPORT TO ONCOMING NURSE.
[2024-09-05] MEDS ORDERED: Tamsulosin HCl 0.4 MG Cap PO SCH (21:00)
[2024-09-06 02:59] VITALS: BP 96/57
[2024-09-06 05:44] LABS: Hematocrit 29.8 % (37.0-53.0); Hemoglobin 10.4 g/dL (13.5-17.5); Mean Corpuscular HGB 32.8 pg (26.0-34.0); Mean Corpuscular HGB Conc 34.9 g/dL (31.5-36.5); Mean Corpuscular Volume 94 fL (80-100); Mean Platelet Volume 9.3 fL (9.1-12.4); Platelet Count 191 K/mm3 (150-400); RDW Coefficient Variation 12.8 % (11.7-14.2); RDW Standard Deviation 44.4 fL (35.1-46.3); Red Blood Cell Count 3.17 M/mm3 (4.30-5.90); White Blood Cell Count 5.51 K/mm3 (4.00-11.30)
[2024-09-06 06:16] LABS: Albumin, Blood 2.3 g/dL (3.4-5.0); Anion Gap 11 mmol/L (3-11); Blood Urea Nitrogen 25 mg/dL (8-24); Bun/Creatinine Ratio 22.7 (12.0-20.0); CO2, Blood 23 mmol/L (21-32); Chloride, Blood 107 mmol/L (98-108); Glomerular Filtration Rate 65 (60-); Glucose, Blood 101 mg/dL (70-99); Phosphorus, Blood 2.2 mg/dL (2.5-4.9); Potassium, Blood 3.9 mmol/L (3.5-5.5); Sodium, Blood 137 mmol/L (136-145)
[2024-09-06 07:43] VITALS: BP 110/62
--- NOTE | 2024-09-06 10:34 | NUR ---
"Spiritual Care | Pt. Request Pt. is awake in bed and welcomes my visit. Family members are present. Pt. is pleasant, but displays evidence of some confusion. With the assistance from bedside family matters of marian and belief are considered. Prayed with pt. and family. Pt. and family verbalized gratitude for the spiritual care visit. Will remain available to Pt."
[2024-09-06 15:31] VITALS: BP 120/62
[2024-09-06 16:04] VITALS: BP 137/58
[2024-09-06 16:12] VITALS: BP 118/63
[2024-09-06] MEDS ORDERED: Sodium Phosphate Mono/Dibasic 250 MG Tab PO SCH (17:00)
--- NOTE | 2024-09-06 18:20 | NUR ---
SHIFT SUMMARY PT A&OX2-3. PT IS THREE AFFILIATED. PT ADMITTED DUE TO OCCULT GI BLEED. PT REPORTS NO PAIN. PT RECEIVING CONT. PROTONIX AT 10ML/HR. PT HAS NS RUNNING AT 50ML/HR. PT RECEIVED ULTRASOUND TODAY AND WORKED WITH PHYSICAL THERAPY. PT INC. OF URINE. PT ATTENDS CHANGED PRN WITH ASSISTANCE. PT WAS UP IN CHAIR TODAY. PT ATE ADEQUATE. PT ON TELE. PT IN BED. PT'S BED AT LOWEST POSITION. CALL LIGHT IN REACH. BED ALARM ON. PT REPORTS NO NAUSEA, AND TOLERATING FOOD.
[2024-09-06 19:31] VITALS: BP 142/62
[2024-09-06] MEDS ORDERED: LOPE2C PO (23:22)
[2024-09-06] MEDS ORDERED: DESITIN DAILY136 GM TOP (23:23)
[2024-09-06] MEDS ORDERED: DULCOLAX400 MG/5 M PO (23:23)
[2024-09-06] MEDS ORDERED: Acetaminophen650 M1 PO (23:24)
[2024-09-06] MEDS ORDERED: STIOLTO RESPIMAT4 G1 INH (23:24)
[2024-09-06] MEDS ORDERED: ALMACONE SUSPE355 ML PO (23:25)
[2024-09-06] MEDS ORDERED: BISA10S PR (23:26)
[2024-09-07 04:30] VITALS: BP 127/65
--- NOTE | 2024-09-07 05:12 | NUR ---
DISORIENTED, UNABLE TO REORIENT. TELE IN PLACE, SR @ 64. PACEMAKER. RA. INCT OF URINE AND BM. PT IS WORKIN WITH PT/OT FOR STRENGTHENING. PT LIVES [facility], BUT MAY NEED MORE HELP THAN [facility] FOR [facility].
[2024-09-07 05:49] LABS: Hematocrit 27.3 % (37.0-53.0); Hemoglobin 9.8 g/dL (13.5-17.5); Mean Corpuscular HGB 33.6 pg (26.0-34.0); Mean Corpuscular HGB Conc 35.9 g/dL (31.5-36.5); Mean Corpuscular Volume 94 fL (80-100); Mean Platelet Volume 9.2 fL (9.1-12.4); Platelet Count 204 K/mm3 (150-400); RDW Coefficient Variation 12.7 % (11.7-14.2); RDW Standard Deviation 43.8 fL (35.1-46.3); Red Blood Cell Count 2.92 M/mm3 (4.30-5.90); White Blood Cell Count 5.93 K/mm3 (4.00-11.30)
[2024-09-07 07:33] VITALS: BP 121/57
[2024-09-07 08:10] LABS: Albumin, Blood 2.2 g/dL (3.4-5.0); Anion Gap 10 mmol/L (3-11); Blood Urea Nitrogen 17 mg/dL (8-24); Bun/Creatinine Ratio 15.9 (12.0-20.0); CO2, Blood 22 mmol/L (21-32); Calcium, Blood 7.8 mg/dL (8.5-10.1); Chloride, Blood 108 mmol/L (98-108); Creatinine, Blood 1.07 mg/dL (0.60-1.20); Glomerular Filtration Rate 68 (60-); Glucose, Blood 95 mg/dL (70-99); Phosphorus, Blood 2.8 mg/dL (2.5-4.9); Potassium, Blood 3.9 mmol/L (3.5-5.5); Sodium, Blood 136 mmol/L (136-145)
[2024-09-07 15:21] VITALS: BP 129/58
--- NOTE | 2024-09-07 18:41 | NUR ---
DAY SHIFT SUMMARY: NO ACUTE EVENTS TO REPORT THIS SHIFT. PT ALERT; ORIENTED TO SELF; CALM AND COOPERATIVE WITH CARE. NO MELENA SEEN THIS SHIFT; CONTINUING PPI. GENTLE HYDRATION CONTINUING. TELE IN PLACE; SR @ 61 PER TRAINING ADMINISTRATOR DURING MORNING ASSESSMENT. PT/OT FOLLOWING. ANTICIPATING DISCHARGE IN NEXT 24 HOURS. WCTM.
[2024-09-07 19:36] VITALS: BP 125/74
[2024-09-07] MEDS ORDERED: NS 250 ML IV PRN (20:40)
[2024-09-08 03:00] VITALS: BP 116/62
[2024-09-08 06:00] LABS: Hematocrit 27.9 % (37.0-53.0); Mean Corpuscular HGB 33.3 pg (26.0-34.0); Mean Corpuscular HGB Conc 35.8 g/dL (31.5-36.5); Mean Corpuscular Volume 93 fL (80-100); Mean Platelet Volume 9.2 fL (9.1-12.4); Platelet Count 233 K/mm3 (150-400); RDW Coefficient Variation 12.8 % (11.7-14.2); RDW Standard Deviation 43.9 fL (35.1-46.3); White Blood Cell Count 6.78 K/mm3 (4.00-11.30)
--- NOTE | 2024-09-08 06:29 | NUR ---
SHIFT SUMMARY AT START OF SHIFT, PT LYING IN HIS BED SLEEPING. DURING EVENING MED PASS, PT ABLE TO IDENTIFY BIRTHDAY, BUT NOT HIS NAME. PT REORIENTATED TO LOCATION/SITUATION. PT CONTINUES TO APPEAR CONFUSED. PT NOW SLEEPING COMFORTABLY IN BED. NO SIGNS OF DISTRESS NOTED. 0626, PT STILL SLEEPING IN BED.
[2024-09-08 07:40] VITALS: BP 116/73
[2024-09-08] MEDS ORDERED: Pantoprazole Sodium 20 MG Tab PO SCH (08:00)
[2024-09-08] MEDS ORDERED: PANT20 PO (14:37)
[2024-09-08 15:32] VITALS: BP 132/70
--- NOTE | 2024-09-08 18:10 | NUR ---
SHIFT SUMMARY PATIENT PROGRESSIVELY MORE ALERT THROUGHOUT SHIFT. PATIENT AMBULATED WITH THERAPY INTO THE ARREAGA BUT NEEDING FREQUENT VERBAL CUES AND DIRECTION. PATIENT ABLE TO SAY NAME, , TOWN, AND FACILITY AT END OF SHIFT. PATIENT RESIDES AT [facility]. [facility] TO REASSESS PATIENT FOR DISCHARGE. NO SIGNS OF BLEEDING AND PATIENT TOLERATING DIET.
[2024-09-08 19:13] VITALS: BP 129/73
[2024-09-09 03:32] VITALS: BP 119/67
--- NOTE | 2024-09-09 04:53 | NUR ---
SHIFT SUMMARY PT ALERT ORIENTED TO SELF ONLY. HE WASNT ABLE TO TELL ME WHERE HE WAS BUT WHEN I TOLD HIM HE WAS AT [facility] HE STATED OH IN [place]. HE ONLY ASKED FOR THE REASON THAT HE WAS HERE AND I EXPLAINED IT TO HIM. HE SEEMS TO BE GETTING ALOT MORE ALERT THEN WHEN HE CAME IN. HE USES THE URINAL FOR URINATION AND IS CONT. NO SIGNS OF BLEEDING AT THIS TIME. HE LIVES AT [facility] AND IS PENDING DISCHARGE. HES RESTING IN BED AT THIS TIME WITH CALL LIGHT IN REACH
[2024-09-09 05:20] LABS: Hematocrit 27.9 % (37.0-53.0); Hemoglobin 9.7 g/dL (13.5-17.5); Mean Corpuscular HGB 32.7 pg (26.0-34.0); Mean Corpuscular HGB Conc 34.8 g/dL (31.5-36.5); Mean Corpuscular Volume 94 fL (80-100); Mean Platelet Volume 9.3 fL (9.1-12.4); Platelet Count 263 K/mm3 (150-400); RDW Coefficient Variation 12.8 % (11.7-14.2); RDW Standard Deviation 44.1 fL (35.1-46.3); Red Blood Cell Count 2.97 M/mm3 (4.30-5.90); White Blood Cell Count 6.39 K/mm3 (4.00-11.30)
[2024-09-09 05:48] LABS: Bun/Creatinine Ratio 13.5 (12.0-20.0); Calcium, Blood 8.1 mg/dL (8.5-10.1); Creatinine, Blood 1.11 mg/dL (0.60-1.20); Phosphorus, Blood 3.1 mg/dL (2.5-4.9)
[2024-09-09 07:16] VITALS: BP 132/59
--- NOTE | 2024-09-09 10:30 | NUR ---
SHIFT SUMMARY AND DISCHARGE PATIENT ALERT AND INTERACTIVE. PATIENT ABLE TO MAKE NEEDS KNOWN AND ABLE TO MOBILIZE WITH STAND BY ASSIST. PATIENT AND DAUGHTER EAGER TO GET PATIENT BACK TO [facility]. PT EVALUATED BY FACILITY RN AND ACCEPTING OF PATIENT. CASE MANAGEMENT TO ASSIST WITH DISCHARGE. DISCHARGE INSTRUCTIONS REVIEWED WITH DAUGHTER AND PATIENT. CASE MANAGEMENT FAXED DOCUMENTATION TO FACILITY. IV AND TELE REMOVED. PATIENT TAKEN OUT VIA WHEELCHAIR. ROOM CHECK DONE PRIOR TO DEPARTURE.
== END 2024-09-09 10:21 | disposition home health service (06) | DRG 378 ==
LOC: ER 04:52 → ERHOLD 07:44 → MEDS 07:44
PROVIDERS: Emergency Medicine; Internal Medicine; Student in an Organized Health Care Education/Training Program; ADMIT Internal Medicine
DX: K92.2 Gastrointestinal hemorrhage, unspecified (principal); D62 Acute posthemorrhagic anemia; G45.8 Other transient cerebral ischemic attacks and related syndromes; M50.03 Cervical disc disorder with myelopathy, cervicothoracic region; G30.9 Alzheimer's disease, unspecified; F02.80 Dementia in other diseases classified elsewhere, unspecified severity, without behavioral disturbance, psychotic disturbance, mood disturbance, and anxiety; I25.10 Atherosclerotic heart disease of native coronary artery without angina pectoris; R29.6 Repeated falls; J44.9 Chronic obstructive pulmonary disease, unspecified; I73.9 Peripheral vascular disease, unspecified; E78.5 Hyperlipidemia, unspecified; I10 Essential (primary) hypertension; I49.5 Sick sinus syndrome; I25.2 Old myocardial infarction; Z86.16 Personal history of COVID-19; Z95.0 Presence of cardiac pacemaker; Z79.82 Long term (current) use of aspirin; Z87.891 Personal history of nicotine dependence; Z95.5 Presence of coronary angioplasty implant and graft; Z95.820 Peripheral vascular angioplasty status with implants and grafts
CPT/HCPCS: 36415; 71260; 74177; 80048; 80053; 80069; 82272; 83735; 83880; 84100; 84484; 85025; 85027; 85610; 85730; 86850; 86900; 86901; 87428-QW; 93005; 93010; 93880; 94640; 94664; 94760; 94762; 96365; 97110; 97110-CQ; 97116; 97162; 97165; 97530; 97530-CQ; 97535; 99285-25; A9270; J2470; J7030; J7050; Q9967

== ENCOUNTER 2024-09-21 12:01 | Inpatient (IN) | payer MEDICARE, OTHER ==
[~2024-09-21] VITALS: Ht 175.3 cm; Wt 72.5 kg
[~2024-09-21 12:01] MED LIST changes: +ALMACONE SUSPE355 ML PO; +Acetaminophen650 M1 PO; +BISA10S PR; +DESITIN DAILY136 GM TOP; +DULCOLAX400 MG/5 M PO; +LOPE2C PO; +PANT20 PO; +STIOLTO RESPIMAT4 G1 INH
[2024-09-21] MEDS ORDERED: HYDROmorphone HCl/Pf 1MG SYR IV ONE (15:30)
[2024-09-21 16:20] LABS: BASOPHILS ABSOLUTE AUTO 0.01 K/mm3 (0.00-0.23); BASOPHILS PERCENT AUTO 0 % (0-2); EOSINOPHILS ABSOLUTE AUTO 0.01 K/mm3 (0.00-0.68); EOSINOPHILS PERCENT AUTO 0 % (0-6); Hematocrit 34.4 % (37.0-53.0); Hemoglobin 11.7 g/dL (13.5-17.5); IMMATURE GRAN ABSOLUTE AUTO 0.03 K/mm3 (0.00-0.10); IMMATURE GRAN PERCENT AUTO 0 % (0-1); LYMPHOCYTES PERCENT AUTO 6 % (21-46); MONOCYTES ABSOLUTE AUTO 0.67 K/mm3 (0.16-1.47); MONOCYTES PERCENT AUTO 6 % (4-13); Mean Corpuscular Volume 97 fL (80-100); Mean Platelet Volume 8.9 fL (9.1-12.4); NEUTROPHILS PERCENT AUTO 87 % (41-73); Platelet Count 243 K/mm3 (150-400); RDW Coefficient Variation 14.3 % (11.7-14.2); RDW Standard Deviation 49.7 fL (35.1-46.3); Red Blood Cell Count 3.55 M/mm3 (4.30-5.90); White Blood Cell Count 10.92 K/mm3 (4.00-11.30)
[2024-09-21 16:36] LABS: International Normalized Ratio 1.01; Prothrombin Time Results 10.8 Sec (9.7-11.5)
[2024-09-21 16:45] LABS: Source, Urine Foley catheter
[2024-09-21 16:46] LABS: Albumin, Blood 2.9 g/dL (3.4-5.0); Albumin/Globulin Ratio 0.8 (0.8-1.8); Bilirubin, Total 0.8 mg/dL (0.1-1.0); Bun/Creatinine Ratio 12.6 (12.0-20.0); Calcium, Blood 8.7 mg/dL (8.5-10.1); Creatinine, Blood 1.19 mg/dL (0.60-1.20); Globulin, Blood 3.6 g/dL (2.2-4.0); Potassium, Blood 4.2 mmol/L (3.5-5.5); Total Protein, Blood 6.5 g/dL (6.4-8.2)
[2024-09-21 16:48] LABS: Appearance, Urine Clear (Clear); Bilirubin, Urine Neg (Neg); Blood, Urine 2+ (Neg); Color, Urine Yellow (P-Yellow); Glucose Qualitative, Urine Neg (Neg); Ketones, Urine Neg (Neg); Leukocyte Esterase, Urine Neg (Neg); Nitrite, Urine Neg (Neg); Protein, Urine Neg (Neg); Urobilinogen, Urine 1+ (Normal); pH, Urine 6.5 (5.0-8.0)
[2024-09-21 16:57] LABS: Bacteria Many /hpf; Squamous Epithelial Cells Rare /hpf (Few)
[2024-09-21] MEDS ORDERED: FLU VACC TS2024-25(6MOS UP)/PF 45 MCG/0.5 ML SYRINGE IM SCH (18:00)
[2024-09-21] MEDS ORDERED: FentaNYL Citrate 50 MCG/ML 2 ML Injection IV PRN (18:00)
[2024-09-21] MEDS ORDERED: Stiolto Respimat Inh INH (18:04)
[2024-09-21] MEDS ORDERED: OxyCODONE 5 mg/Acetamin 325 mg TABLET PO PRN (18:05)
[2024-09-21] MEDS ORDERED: NS 1,000 ML IV SCH (18:05)
[2024-09-21] MEDS ORDERED: Ondansetron HCl 2 MG / ML 2ML Vial IV PRN (18:05)
[2024-09-21] MEDS ORDERED: Ipratropium/Albuterol SulF 2.5-0.5MG/3 ML Amp INH SCH (18:10)
[2024-09-21] MEDS ORDERED: Albuterol 2.5 MG/3 ML VIAL INH PRN (18:10)
[2024-09-21] MEDS ORDERED: Ketorolac Tromethamine 15mg Vial IV ONE (18:15)
[2024-09-21] MEDS ORDERED: Sennosides 8.6 MG Tab PO SCH (21:00)
[2024-09-21 22:23] VITALS: BP 101/64
[2024-09-22] VITALS (20 sets, daily range): BP systolic 89–124; BP diastolic 48–91
--- NOTE | 2024-09-22 04:29 | NUR ---
SHIFT SUMMARY PT ER ADMIT THIS SHIFT FOR R FEMORAL FRACTURE R/T GLF. PT PAINFUL UPON ADMISSION. MEDS PER EMAR WERE EFFECTIVE FOR PAIN MANAGEMENT. PT IS PLESANTLY CONFUSED. NOT AWARE THAT HIP IS BROKEN AND DOES NOT KNOW WHERE HE IS. IVF INFUSING PER ORDERS. WAITING FOR ORTHO CONSULT AT THIS TIME. VITALS STABLE, BED IN LOWEST POSITION, CALL LIGHT WITHIN REACH.
[2024-09-22] MEDS ORDERED: Pantoprazole Sodium 40 MG Tab PO SCH (06:00)
[2024-09-22] MEDS ORDERED: Aspirin 81 MG Chew PO SCH (09:00)
[2024-09-22] MEDS ORDERED: Docusate Sodium 100 MG Cap PO SCH (09:00)
[2024-09-22] MEDS ORDERED: Tamsulosin HCl 0.4 MG Cap PO SCH (09:00)
[2024-09-22] MEDS ORDERED: Atorvastatin 40 MG Tab PO SCH (09:00)
[2024-09-22] MEDS ORDERED: propofoL 20 ML IV ONE (09:11)
[2024-09-22] MEDS ORDERED: FentaNYL Citrate 50 MCG/ML 2 ML Injection ONE (09:11)
[2024-09-22] MEDS ORDERED: Ondansetron HCl 2 MG / ML 2ML Vial ONE (09:12)
[2024-09-22] MEDS ORDERED: Dexamethasone Sod Phos 10 MG/ML 1ML VIAL ONE (09:12)
[2024-09-22] MEDS ORDERED: EpiNEPhrine 1 MG/1 ML 1ML Vial ONE (09:15)
[2024-09-22] MEDS ORDERED: Bupivacaine HCl 0.25% 30 ML Injection ONE (09:15)
[2024-09-22] MEDS ORDERED: Acetaminophen 500 MG Tab PO PRN (09:20)
[2024-09-22] MEDS ORDERED: OxyCODONE HCL 5 MG TAB PO PRN (09:20)
--- NOTE | 2024-09-22 09:57 | NUR ---
Spiritual Care Consult | Ordered by Dr. Jacinda Hercules DO Pt is awake in bed and displays evidence of significant anxiety. Pt. also displays evidence of confusion. With theraputic listening and empathy the Pt. verbalizes that he wants to be "forgiven for his sins." Pastoral care is given. Matters of marian and belief are considered. Prayers of confession are made on the pts. behalf. Pt. displayed a measure of peace, but in light of his confusion this scrub woman will check on him again later in the day.
[2024-09-22] MEDS ORDERED: Tranexamic Acid 1,000 MG in NS 100 ML IV SCH (10:45)
[2024-09-22] MEDS ORDERED: CeFAZolin Sodium 2,000 MG in NS 100 ML IV SCH ×2 (10:45→20:00)
[2024-09-22] MEDS ORDERED: Lactated Ringer's 1,000 ML IV SCH (10:45)
[2024-09-22] MEDS ORDERED: Bupivacaine 0.5% HCl 5 MG/ML 30MLVIAL ONE (11:44)
[2024-09-22] MEDS ORDERED: Midazolam HCl 1MG / ML 2ML Vial ONE (11:47)
[2024-09-22] MEDS ORDERED: Midazolam HCl 1MG / ML 2ML Vial IV ONE (11:55)
[2024-09-22] MEDS ORDERED: Phenylephrine HCl 100 MCG/ML-NS 10MLSYR (1MG/10ML) ONE (12:01)
[2024-09-22] MEDS ORDERED: Vasopressin 20 UNITS/ML 1ML Vial ONE (12:13)
--- NOTE | 2024-09-22 14:12 | NUR ---
PT ARRIVED TO RM 213 FROM PACU AT 1410. PT ABLE TO REST WITH EYES CLOSED. PT ON 4L O2 VIA NC, OTHER VSS. R HIP SURGICAL SITE WNL.
[2024-09-22] MEDS ORDERED: Mometasone/Formoterol MDI 200/5 mcg 13 GM INH SCH (14:40)
[2024-09-22] MEDS ORDERED: ASPI81CH PO (15:11)
[2024-09-22] MEDS ORDERED: ALMACONE SUSPE355 ML PO (15:12)
--- NOTE | 2024-09-22 17:10 | NUR ---
HOME MED REC WAS UPDATED, DR. BOYD NOTIFIED.
--- NOTE | 2024-09-22 17:10 | NUR ---
CODE STATUS PT'S DAUGHTER NOTIFIED STAFF THAT PT IS A DNR. SHE STATED THAT [facility]. THIS RN ATTEMPTED TO OBTAIN RECORDS FROM [facility] [place] HOWEVER PT HAS NOT BEEN SEEN AT THAT [facility], PER [facility] HE WAS LAST SEEN AT THE [facility] IN [facility]. DR. BOYD NOTIFIED, SHE CHANGED PT TO DNR STATUS. PALLIATIVE CARE CONSULT WAS PLACED TO ASSIST FAMILY WITH POLST FORM.
[2024-09-22] MEDS ORDERED: Ipratropium/Albuterol SulF 2.5-0.5MG/3 ML Amp INH SCH (18:10)
--- NOTE | 2024-09-22 18:28 | NUR ---
SHIFT SUMMARY PT IS POD#0 FROM R HIP PINNING. PT HAS HAD MINIMAL PAIN. PT REMAINS ORIENTED TO SELF. HE IS TEARFUL BUT RESPONDS WELL TO REASSURANCE. FAMILY HAS VISITED TODAY AND PT RESPONDS WELL TO FAMILY.
[2024-09-23] MEDS ORDERED: OLANZapine 10 MG Vial IM ONE (03:45)
[2024-09-23] MEDS ORDERED: LORazepam 2 MG/ML 1ML Injection IV ONE (04:15)
[2024-09-23 04:48] VITALS: BP 114/66
[2024-09-23 06:00] LABS: Hematocrit 31.7 % (37.0-53.0); Hemoglobin 10.7 g/dL (13.5-17.5); Mean Corpuscular HGB 33.1 pg (26.0-34.0); Mean Corpuscular HGB Conc 33.8 g/dL (31.5-36.5); Mean Corpuscular Volume 98 fL (80-100); Mean Platelet Volume 9.5 fL (9.1-12.4); Platelet Count 175 K/mm3 (150-400); RDW Coefficient Variation 14.7 % (11.7-14.2); RDW Standard Deviation 53.2 fL (35.1-46.3); Red Blood Cell Count 3.23 M/mm3 (4.30-5.90); White Blood Cell Count 13.49 K/mm3 (4.00-11.30)
[2024-09-23 06:23] LABS: Bun/Creatinine Ratio 16.5 (12.0-20.0); Calcium, Blood 8.1 mg/dL (8.5-10.1); Creatinine, Blood 1.09 mg/dL (0.60-1.20); Phosphorus, Blood 2.1 mg/dL (2.5-4.9); Potassium, Blood 4.2 mmol/L (3.5-5.5)
[2024-09-23 07:30] VITALS: BP 98/55
--- NOTE | 2024-09-23 08:12 | NUR ---
SHIFT SUMMARY; PATIENT WAS SLEEPING THRU THE FIRST HALF OF MY SHIFT, REFUSED ORAL MEDS GROUND IN AP SA. PATIENT TRYING TO PULL SAEED AT ONE POINT. HAD TO CALL FOR ZPREXIA AND THEN ATIVAN TO TRY AND HELP HIM CALM DOWN. ENDED UP CALLING IN HIS DAUGHTER TO HELP HIM.
[2024-09-23] MEDS ORDERED: Aspirin 81 MG TabEC PO SCH (09:00)
[2024-09-23 16:09] VITALS: BP 85/60
[2024-09-23 16:19] VITALS: BP 101/57
--- NOTE | 2024-09-23 17:20 | NUR ---
SUMMARY; PT IS POD1 R HIP PINNING.PT ORIENTED TO SELF AND FAMILY. VSS. PT HAS HX DEMENTIA AND IS VERY CONFUSED. SITTER AT BEDSIDE MOST OF TODAY. THERAPY WORKED WITH PT AND ABLE TO TRANSFER TO CHAIR, BUT NEEDED 2-3 ASSIST. PT HAS HARD TIME FOLLOWING COMMANDS. PT VOICES THAT HE IS PAINFUL AT TIMES, AND GRABS R HIP. MEDICATED PER EMAR. SURGICAL SITE WNL. ABLE TO SWALLOW PILLS WITH WATER. PT HYPOTENSIVE TONIGHT, DR. LR MADE AWARE. NS IS INFUSING AT 1OO/HR. PT DAUGHTER IN ROOM TODAY AND IS UP TO DATE ON PLAN OF CARE. BED/CHAIR ALARMS SET TODAY FOR SAFETY. NO ACUTE CONCERNS.
[2024-09-23 20:09] VITALS: BP 88/58
[2024-09-23 21:39] VITALS: BP 95/64
[2024-09-24 01:47] VITALS: BP 101/67
[2024-09-24 04:22] VITALS: BP 124/65
--- NOTE | 2024-09-24 05:29 | NUR ---
SHIFT SUMMARY POD 2-R HIP PINNING. AQUACEL DRESSING C/D/I. ABLE TO WIGGLE BLE. DENIES N/T. MEDICATED 1x W/5MG OXYCODONE @HS FOR PT WAS GRABBING HIP AFTER TRANSFERRING TO BED FROM CHAIR. 2ASSIST W/GB & FWW FOR TRANSFER, NEEDING MULTIPLE QUES. AOX2-SELF, FAMILY, TOWN. FORGETFUL SITUATION, PLACE, DATE. HX DEMENTIA. PT HAS BEEN PLEASENT & COOPERATIVE T/O NIGHT. CONFUSED @TIMES BUT SARCASTIC, MAKING JOKES, LAUGHING @BEGINNING OF SHIFT. ABLE TO FOLLOW SIMPLE DIRECTIONS. BP SOFT @BEGINNING OF SHIFT. ENCOURAGED PO FLUIDS & BP IS WNL THIS AM. CALL LIGHT & BED ALARM IN PLACE.
[2024-09-24 05:47] LABS: Hematocrit 29.8 % (37.0-53.0); Hemoglobin 9.9 g/dL (13.5-17.5); Mean Corpuscular HGB 33.1 pg (26.0-34.0); Mean Corpuscular HGB Conc 33.2 g/dL (31.5-36.5); Mean Corpuscular Volume 100 fL (80-100); Mean Platelet Volume 9.4 fL (9.1-12.4); Platelet Count 161 K/mm3 (150-400); RDW Coefficient Variation 15.2 % (11.7-14.2); RDW Standard Deviation 54.8 fL (35.1-46.3); Red Blood Cell Count 2.99 M/mm3 (4.30-5.90); White Blood Cell Count 9.56 K/mm3 (4.00-11.30)
[2024-09-24 06:19] LABS: Bun/Creatinine Ratio 20.5 (12.0-20.0); Calcium, Blood 8.4 mg/dL (8.5-10.1); Creatinine, Blood 1.17 mg/dL (0.60-1.20); Magnesium, Blood 2.1 mg/dL (1.6-2.4); Potassium, Blood 4.2 mmol/L (3.5-5.5)
[2024-09-24] MEDS ORDERED: NS 500 ML IV SCH (08:50)
[2024-09-24] MEDS ORDERED: OLANZapine ODT 5 MG Tab MM PRN (08:55)
[2024-09-24 09:19] VITALS: BP 117/58
--- NOTE | 2024-09-24 15:17 | NUR ---
PT DAUGHTER STATING PT IS MUCH MORE CONFUSED, WANTING TO KNOW RESULTS OF CT SCAN, AND WANTING PT UP TO CHAIR. THIS RN AND PRIMARY RN TO ROOM. PT DOES APPEAR MORE AGGITATED THAN THIS MORNING AT BREAKFAST. PT WAS MEDICATED WITH 5MG ROXICODONE THIS MORNING AT APROX 0840, WAS REPORTED TO PRIMARY THAT PT HAD PREVIOUSLY BEEN TOLERATING. DISCUSSED WITH PRIMARY RN AND DAUGHTER SPEAKING WITH MD AND REQUESTING SOMETHING DIFERENT FOR PAIN. PT WAS A TWO MAX ASSIST WITH GAIT BELT AND FWW TO RECLINER, REQUIRED REDIRECTING AND CUES T/O. PT TEARFUL AND CONTINUES TO ASK "WHAT HAPPNED" PT ALSO HAS TREMORS BUE THAT HAVE BEEN PRESENT OFF AND ON T/O DAY OBSERVED AT TIME OF TX. MD NOTIFIED AND TRANSFERED TO PHONE IN PT ROOM TO SPEAK WITH DAUGHTER. ICE PACK APPLIED TO PTS R HIP.
[2024-09-24 15:34] VITALS: BP 128/55
--- NOTE | 2024-09-24 19:17 | NUR ---
SHIFT SUMMARY POD2 R HIP PINNING, A/OX2 TO SELF AND FAMILY, VSS, TOLERATING PO, PAIN MANAGED PER EMAR THOUGH HE DOES GET MORE CONFUSED WITH HIS PAIN MEDICATIONS. UP TO THE CHAIR WITH 2 RN ASSIST BUT NOT A MAX ASSIST, HIS GAIT IS SLOW AND HE NEEDS REPEATED INSTRUCTIONS BUT HE IS ABLE TO SHUFFLE HIS FEET OT GET UP TO THE CHAIR. HE BECAME AGGITATED SHORTLY BEFORE SHIFT CHANGE WANTING TO GET UP TO GO TO THE BATHROOM BUT WAS NOT WANTING TO USE THE GAIT BELT. HE WAS NOT AGGRESSIVE WITH STAFF DURING HIS AGGITATED PERIOD HE WAS EASILY TEARFUL AND VERBALLY STATIGN HE WAS CONFUSED AND DIDN'T KNOW WHAT WAS GOING ON. NO OTHER EVENTS THIS SHIFT,CALL LIGHT IN REACH.
[2024-09-24 21:36] VITALS: BP 124/60
[2024-09-25 04:17] VITALS: BP 164/95
[2024-09-25 04:30] VITALS: BP 117/79
--- NOTE | 2024-09-25 04:36 | NUR ---
SHIFT SUMMARY POD #3 S/P RIGHT HIP PINNING. A/OX2. AQUACEL TO RIGHT HIP CDI, ICE THERAPY TOLERATED. SPO2 AT 95% ON 3L NC, CONT BIOX IN PLACE. BREATHING TREATMENT X 1. PT VERY FEARFUL OF MASK/TREATMENT. ABLE TO REASSURE EASILY. PAIN MANAGED PER EMAR AND REPOSITIONING. SITTER AT BEDSIDE RELATED HX OF DEMENTIA. PT PLEASANT AND COOPERATIVE T/O SHIFT. APPEARS TO HAVE RESTED T/O MOST OF NIGHT. USING URINAL WITH 1 ASSIST, 2 PERSON MAX ASSIST WITH GATEBELT & FWW WITH CHAIR TRANSFER. PIYUSH PO INTAKE. PT CURRENTLY RESTING IN BED WTIH CALL LIGHT IN REACH, BED ALARM ON, EYES CLOSED AND ICE PACK TO RIGHT HIP. PLAN TO WORK WITH THERAPY TODAY. WILL GIVE REPORT TO ONCOMING RN.
[2024-09-25 06:09] LABS: Hemoglobin 9.6 g/dL (13.5-17.5); Mean Corpuscular HGB 33.1 pg (26.0-34.0); Mean Corpuscular HGB Conc 33.1 g/dL (31.5-36.5); Mean Corpuscular Volume 100 fL (80-100); Mean Platelet Volume 9.6 fL (9.1-12.4); Platelet Count 151 K/mm3 (150-400); RDW Coefficient Variation 15.3 % (11.7-14.2); White Blood Cell Count 7.24 K/mm3 (4.00-11.30)
[2024-09-25 07:00] LABS: Bun/Creatinine Ratio 19.7 (12.0-20.0); Calcium, Blood 8.3 mg/dL (8.5-10.1); Creatinine, Blood 1.17 mg/dL (0.60-1.20); Potassium, Blood 4.6 mmol/L (3.5-5.5)
[2024-09-25 07:40] VITALS: BP 132/79
[2024-09-25] MEDS ORDERED: TraMADol HCl 50 MG Tab PO PRN (08:05)
--- NOTE | 2024-09-25 15:24 | NUR ---
SHIFT SUMMARY POD3 R HIP PINNING, ALERT AND OREINTED TO SELF AND FAMILY, HX OF DEMENTIAL WITH SIGNS OF CONFUSION THAT VARIES T/O THE SHIFT, HE HAS BEEN PLEASANT WITH STAFF TODAY, ABLE TO MAKE HIS NEEDS KNOWN, UP TO THE CHAIR WITH 1 ASSIST THOUGH MOST OF THE ASSISTANCE WAS VERBAL DIRECTIONS AND STANDING UP, HE DID A STAND PIVOT BUT KEPT WANTING TO WALK FORWARD SO COULD HAVE WALKED SOME IN ADDITION TO HIS STAND PIVOT TO THE CHAIR. NO ACUTE EVENTS THIS SHIFT, CALL LIGHT IN REACH.
[2024-09-25 16:01] VITALS: BP 103/68
[2024-09-25 19:52] VITALS: BP 127/76
[2024-09-26 04:36] VITALS: BP 118/64
--- NOTE | 2024-09-26 05:18 | NUR ---
SHIFT SUMMARY POD 4 RIGHT HIP PINNING, AQUACEL REPLACED TONIGHT AFTER PATIENT REMOVED DRESSING. DARRELL INTACT. PT A/OX1-2. VSS. CONT BIOX IN PLACE, SPO2 ABOVE 94% ON 2L NC. PT REPOSITIONED Q2. USING URINAL WITH ASSISTANCE. PIYUSH PO INTAKE WITH ENCOURAGEMENT AND ASSISTANCE. ICE THERAPY TO RIGHT HIP TOLERATED. PT APPEARS TO HAVE RESTED QUIETLY WITH EYES CLOSED T/O DURING MOST OF THE NIGHT. MEDICATED 2X FOR PAIN PER EMAR. PT CURRENTLY RESTING IN BED WITH SITTER IN ROOM AND BED ALARM ON FOR SAFETY. WILL GIVE REPORT TO ONCOMING RN .
[2024-09-26 05:49] LABS: Hematocrit 28.5 % (37.0-53.0); Hemoglobin 9.7 g/dL (13.5-17.5)
[2024-09-26 06:24] LABS: Bun/Creatinine Ratio 18.1 (12.0-20.0); Creatinine, Blood 1.05 mg/dL (0.60-1.20); Potassium, Blood 4.4 mmol/L (3.5-5.5)
[2024-09-26] MEDS ORDERED: QUEtiapine Fumarate 25 MG Tab PO SCH (09:00)
[2024-09-26 09:01] VITALS: BP 95/74
[2024-09-26 11:24] VITALS: BP 107/68
[2024-09-26 15:11] VITALS: BP 155/78
--- NOTE | 2024-09-26 19:01 | NUR ---
SHIFT SUMMARY SAT UP IN CHAIR TODAY. WORKED w/ THERAPY. HAD SOME AGIATION x 2. NEW SEROQUEL ORDER MAY HAVE CAUSED SOME HALLUCINATIONS, UNSURE ON ROOT CAUSE BUT STARTED ABOUT 2 HOURS AFTER DOSE. SURG SITE WNL. ABLE TO STAND ON BUT DIFFICULT TO AMBULATE.
[2024-09-26 19:50] VITALS: BP 121/60
--- NOTE | 2024-09-27 05:00 | NUR ---
SHIFT SUMMARY POD 5 S/P RIGHT HIP PINNING. NO ACUTE CHANGES T/O SHIFT. AQUACEL DRESSING CDI TO RIGHT HIP. PT A/OX1 WITH VSS. PIYUSH PO INTAKE WITH ENCOURAGEMENT. PT APPEARS TO HAVE SLEPT COMFORTABLY T/O SHIFT. PLEASANT AND COOPERATIVE WITH CARE TONIGHT. SITTER AT BEDSIDE FOR SAFETY. IS VOIDING. IS CURRENTLY RESTING IN BED WITH CALL LIGHT IN REACH AND BED ALARM ON FOR SAFETY. PLAN TO WORK WITH THERAPY. WILL GIVE REPORT TO ONCOMING RN.
[2024-09-27 05:53] LABS: Hematocrit 29.1 % (37.0-53.0); Hemoglobin 9.9 g/dL (13.5-17.5); Mean Corpuscular HGB 32.6 pg (26.0-34.0); Mean Corpuscular Volume 96 fL (80-100); Mean Platelet Volume 9.5 fL (9.1-12.4); Platelet Count 160 K/mm3 (150-400); RDW Coefficient Variation 14.6 % (11.7-14.2); RDW Standard Deviation 50.5 fL (35.1-46.3); Red Blood Cell Count 3.04 M/mm3 (4.30-5.90); White Blood Cell Count 7.59 K/mm3 (4.00-11.30)
[2024-09-27 06:19] LABS: Bun/Creatinine Ratio 19.4 (12.0-20.0); Calcium, Blood 8.3 mg/dL (8.5-10.1); Creatinine, Blood 1.08 mg/dL (0.60-1.20); Magnesium, Blood 2.1 mg/dL (1.6-2.4); Potassium, Blood 4.2 mmol/L (3.5-5.5)
[2024-09-27 07:05] VITALS: BP 114/73
[2024-09-27] MEDS ORDERED: Furosemide 20 MG Tab PO ONE (08:30)
--- NOTE | 2024-09-27 14:43 | NUR ---
REPORT TO MEDICAL UNIT RN. PLAN TO MOVE TO DIFFERENT UNIT.
--- NOTE | 2024-09-27 15:00 | NUR ---
TO MEDICAL FLOOR VIA
[2024-09-27 15:10] VITALS: BP 149/65
[2024-09-27 19:21] VITALS: BP 139/56
[2024-09-27] MEDS ORDERED: Temazepam 7.5 MG Cap PO ONE ×2 (21:25→23:35)
[2024-09-28 02:05] VITALS: BP 128/72
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
--- NOTE | 2024-09-28 02:33 | NUR ---
0000- PT CARE TURNED OVER TO ARMOND REYNOSO. PT GIVEN BEDSIDE REPORT. PT RESTING QUIETLY WITH SITTER PRESENT.
[2024-09-28 06:04] LABS: Hematocrit 30.1 % (37.0-53.0); Hemoglobin 10.3 g/dL (13.5-17.5)
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
[2024-09-28 06:46] LABS: Bun/Creatinine Ratio 17.6 (12.0-20.0); Calcium, Blood 8.6 mg/dL (8.5-10.1); Creatinine, Blood 1.08 mg/dL (0.60-1.20); Potassium, Blood 4.2 mmol/L (3.5-5.5)
[2024-09-28 07:23] VITALS: BP 149/81
[2024-09-28 17:42] VITALS: BP 141/69
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
[2024-09-28 20:01] VITALS: BP 161/74
[2024-09-29 04:05] VITALS: BP 127/69
[2024-09-29 07:23] VITALS: BP 130/62
[2024-09-29] MEDS ORDERED: Ipratropium/Albuterol SulF 2.5-0.5MG/3 ML Amp INH PRN (08:05)
--- NOTE | 2024-09-29 16:53 | NUR ---
Met pt's daughter at bedside. She is tearful. The patient is not answering any questions, and refusing to eat food. His daughter Bettina states she recognizes this is "not living," and requests the patient be sent home to [facility] with hospice. If [facility] is unable to take the patient back, possible admit to [facility]. Will discuss with CM in the morning. Dr. Vazquez agrees with the plan.
[2024-09-29] MEDS ORDERED: OLANZapine 10 MG Vial IM PRN (17:40)
[2024-09-29] MEDS ORDERED: OLANZapine 10 MG Vial IM ONE (17:40)
--- NOTE | 2024-09-29 18:17 | NUR ---
"Spiritual Care| Nurse/Family request When this tent worker arrived that Pt. displayed evidence of agitation and confusion. The Pt. was verbalizing about things that were not there. This tent worker grabbed the Pts. hand and held tightly. Words of confession were heard and pastoral care and hope were given.Facilitated some life review and storytelling with daughter at bedside. Pt. began to display evidence of a calming demeanor. Prayer is given for both the Pt. and the family. Family verbalized gratitude for the spiritual care visit. Will remain available to the Pt. and family."
--- NOTE | 2024-09-29 19:23 | NUR ---
assumed care of pt, pt sleep peacefully at this time, spoke with daughter and she agreed to let pt sleep and wake naturally.
--- NOTE | 2024-09-29 19:24 | NUR ---
1300 pt woke up agitated and was assisted to the bathroom where upon arriving pt began having delusions that i was going to kill him for the evil he has done in this world. i could not console the pt and he became more agitated, pt then faked passing out forcing me to transfer him to the toilet. the pt and i remained in the bathroom for about 20 min, during this time pt refused to speak with me only saying that i was to do what i wanted and he wasnt going to do anything. again pt pretended to pass out over and over again, at that point i called for a wheel chair transfered him to the chair then back to bed, pt refused any oral medication closing his eyes and mouth and not responding, at one point humming a song. i decided that i would leave pt alone, sitter was at bedside.
--- NOTE | 2024-09-29 19:31 | NUR ---
1630 daughter arrived and tried speaking with pt, daughter then became very distrought at pt condition and realized she would honor his wishes and start the process for hospice. pallative care was notified and spoke with family. pt was then given IM medication and agitiation. family remained around pt until he became calm and ate some food. at this time pt is growing tired and family is about to go so pt can rest. pt much more calm and cooperative now.
[2024-09-29] MEDS ORDERED: QUEtiapine Fumarate 25 MG Tab PO SCH (21:00)
[2024-09-30] MEDS ORDERED: DESITIN DAILY136 GM TOP (00:17)
[2024-09-30] MEDS ORDERED: STIOLTO RESPIMAT4 G1 INH (00:19)
[2024-09-30] MEDS ORDERED: [UNRECOGNIZED DRUG - OTHER] TOP (00:19)
--- NOTE | 2024-09-30 06:42 | NUR ---
SHIFT SUMMARY PT ALERT AND ORIENTED TIMES 3. AT APPROX 2200 PT BECAME INCREASINGLY AGGITATED AND FRUSTRATED, HAVING FREQUENT OUTBURSTS TOWARDS STAFF AND TRYING TO KICK STAFF WHILE STAFF WAS TRYING TO REPOSITION HIS RIGHT LEG THAT WAS DANGLING OFF BED. PT TALKING TO UNSEEN OTHERS AND APPEARING ANGRY AND AGGITATED ABOUT SEEING THEM. TRIED TO TALK TO PT, ASK WHAT CAN WE DO TO HELP YOU. TALKED TO PT FOR ABOUT 20 MINUTES, REASSURING HE IS SAFE, EMPATHIZED WITH HIS PAIN, AND ASSURED HIM THAT HIS DAUGHTER WOULD BE HERE IN THE MORNING. PT AT FIRST IGNORED QUESTIONS, THEN BEGAN YELLING AT THE STAFF, TRYING TO KICK AT STAFF AND BECAME AGGITATED, PULLING HIS BANDAGE OFF SEVERAL TIMES AND PICKING AT HIS DARRELL PT WAS GIVEN IM ZYPREXA, WITH LITTLE TO NO EFFECT. PT BECAME MORE FRUSTRATED AND INCREASINGLY CONFUSED, AGITATED, AND EVENTUALLY TORE HOLE IN HIS DRESSING AND PICKING AT DARRELL. IT APPEARED PT WAS TRYING TO GET OUT OF BED BY TRYING ROLL OVER THE RAILS. PT WAS NOT REDIRECTABLE AND WOULD POSTURE, LIKE WAS GOING TO SWING HIS FIST OR KICK. ORDER FOR SOFT RESTAINT WAS MADE. PT DID NOT RESIST. PT APPEARS TO BE RESTING COMFORTABLY AND CALM. WILL BE REASSESSING Q2. BED IN LOW POSITION, CALL LIGHT WITHIN REACH, RAILS TIMES 2.
[2024-09-30] MEDS ORDERED: HYDROmorphone HCl 2 MG Tab PO PRN (11:20)
[2024-09-30] MEDS ORDERED: Morphine Sulfate 20 MG/1ML 1 ML Oral Syringe PO PRN (11:35)
[2024-09-30] MEDS ORDERED: Acetaminophen 650 MG Supp PR PRN (11:35)
[2024-09-30] MEDS ORDERED: Acetaminophen 650 MG Supp PR SCH (11:35)
--- NOTE | 2024-09-30 13:55 | NUR ---
report received verified assusmed care. pt was placedon restraints last night and they remain on today, pt has no s/s of distress or agitation and has been medicated. Daughter has been at bedside and we have discussed at length for future care of pt, palative care and md have been coordinating.
--- NOTE | 2024-09-30 14:03 | NUR ---
1330, restraints removed and sitter at bedside, pt is calm and quietly sleeping, he has at times opened his eyes but no complaints
[2024-09-30 16:23] VITALS: BP 132/65
--- NOTE | 2024-09-30 16:41 | NUR ---
1530 pt woke alert but confused. pt pleasent, isnt able to follow commands but is cooperative with care since restraints remove. daughter at bedside in better state and has been conversing with pt.
[2024-09-30] MEDS ORDERED: RisperiDONE 1 MG Tab PO SCH (21:00)
--- NOTE | 2024-10-01 03:42 | NUR ---
PT IS A 89 YO DNR ADMITTED FOR R FEMORAL FX. PT IS NOT IN RESTRAINTS AND HAS MOMENTS OF AGITATION AND VERY CONFUSED A&O1-2. PT ATTEMPTS TO GET OUT OF BED AND WE ARE ABLE TO REDIRECT HIM SOMETIMES. PT HAS A SITTER WATCHING HIM. WE PUT A MALE PURE WICK ON THE PT AND IT SEEMS TO BE WORKING WELL. PT HAS ENJOYED PUDDING TONIGHT AND HAS BEEN LESS COMBATIVE. PT HAS A RIGHT AQUACELL ON LEG THAT HES NOT PICKING AT. PT HAS HAD ZYPREXA A COUPLE TIMES THIS EVENING WHEN HE GETS VERY AGITATED WITH STAFF AND IT SEEMS TO HELP RELAX THE PT.CALL LIGHT IN REACH AND BED ALARM SET FOR SAFETY.
[2024-10-01 04:03] VITALS: BP 130/60
--- NOTE | 2024-10-01 07:56 | NUR ---
assumed care of pt, awake and alert very confused, pt stated he isnt having any pain but just doesnt undersdtand what he is doing here. pt memory is maybe 30 sec before having to explain again. purwik in place and sitter has been dced. bed check is on.
[2024-10-01] MEDS ORDERED: OLANZapine 5 MG Tab PO ONE (13:25)
--- NOTE | 2024-10-01 14:03 | NUR ---
DAUGHTER NOW AT BEDSIDE TO ASSIT IN CARE AND ACT A SITTER PT CALM AND COOPERATIVE WITH CARE YET VERY CONFUSED. PHYSICAL THERAPY ASSISTED PT TO CHAIR WITH MINIMAL ASSIST AND DID VERY WELL, SITTING UP FOR ATLEAST A COUPLE HOURS
[2024-10-01 15:34] VITALS: BP 144/59
--- NOTE | 2024-10-01 18:41 | NUR ---
pt back in bed with family at bedside, pt did very well and pleasent with family and staff, pt drowsy and falling in and out of sleep so family decided to leave. pt remains distractable but seems to be becoming more agitated picking and pulling at whatever is around him. 1500 pt fell asleep is calm and relaxed
--- NOTE | 2024-10-01 19:17 | NUR ---
1819 pt awoke very upset and agitated began tearing and pulling a lines, i was not able to redirect at this point and pt did not want to see me in the room. as i was in the next room alarms sounded and pt had jumped out of bed, pt was uninjured and hanging senior living off bed. pt was assisted back to bed and begain punching at staff, at that point we backed away, allowing the pt to calm. after pt calmed a moment the anesthesiologist/physician and i administered IM zyprexa without incident. bed alarm in place pt laying still in bed
[2024-10-01] MEDS ORDERED: OLANZapine 5 MG Tab PO SCH (21:00)
--- NOTE | 2024-10-02 04:04 | NUR ---
SHIFT SUMM: PT STARTED THE SHIFT VERY UPSET AND TRYING TO HIT AND KICK STAFF. PT WAS GIVEN IM ZYPREXA AND ABLE TO CALM DOWN SOME. SINCE PT HAS BEEN IN A BETTER MOOD AND MORE COOPERATIVE W/CARE. PT CONTINUES TO TUG AT CONDOM CATHETER AND MALE PURE RAPHAEL.PT HAS HAD LINEN CHANGED AND REPOSITIONED FOR COMFORT. PT ENJOYS MEDS CRUSHED IN PUDDING AND WATCHING TV.PT HAS BEEN VERY CONFUSED AND AWAKE ALL NIGHT BUT NOW ASLEEP. UPON COMING ON TO SHIFT PT HAS A NEW SKIN TEAR ON TOP OF HAND AND I BANDAGED IT AND ALSO CHANGED THE MEPILEX ON SACRUM. PT HAS CALL LIGHT IN REACH AND BED ALARM SET FOR SAFETY.
[2024-10-02] MEDS ORDERED: OLANZapine 10 MG Vial IM SCH (10:10)
--- NOTE | 2024-10-02 12:14 | NUR ---
assumed care, pt calm and peacful in bed no s/s of distress shows no signs of pain. daughter at bedside assisting with care. pt awoke and recognized daughter and was very pleasent. condom cath intact. pt not eating or drinking at this time so has minimal out put. will cont to monitor.
[2024-10-02] MEDS ORDERED: Scopolamine Hydrobromide Patch TOP PRN (15:35)
[2024-10-02] MEDS ORDERED: Haloperidol Lactate 2 MG/ML Conc 1ML Dose PO PRN (15:35)
[2024-10-02] MEDS ORDERED: Morphine Sulfate 20 MG/1ML 1 ML Oral Syringe SL PRN (15:35)
[2024-10-02] MEDS ORDERED: Atropine Sulfate 1% Opth Soln 2ML BTL SL PRN (15:35)
[2024-10-02] MEDS ORDERED: Bisacodyl 10 MG Supp PR PRN (15:50)
--- NOTE | 2024-10-02 15:58 | NUR ---
CLARIFICATION OF ORDERS MET WITH PT'S DTR, SON AND ALIREZA THIS AFTERNOON. FAMILY WOULD LIKE COMFORT CARE MEASURES STARTED NOW, PRIOR TO D/C ON HOSPICE. PROVIDED FAMILY WITH HOSPICE EDUCATION BOOKS; "THE ELEVENTH HOUR" (PINK), AND "GONE FROM MY SIGHT" (BLUE). GENTLE EDUCATION ON END OF LIFE S/SX AND MANAGEMENT. ANSWERED QUESTIONS RE: OUTPATIENT HOSPICE SERVICES AND WHAT IT ENTAILS. RCV'D VERBAL ORDERS FOR COMFORT CARE. ORDERS PLACED ACCORDINGLY. IM ZYPREXA IS MANAGING PT'S ANXIETY AT THIS TIME. CONFIRMED WITH INSTALLER TECHNICIAN, ZYPREXA IM CAN BE ORDERED FOR HOME HOSPICE PATIENTS. NO BOWEL MOVEMENT SINCE PRIOR TO ADMISSION. PLAN: ADMINISTER BISACODYL SUPPOSITORY. CONTINUE TO MONITOR I/O'S AND DOCUMENT ANY BOWEL MOVEMENTS. D/C ON HOSPICE. FAMILY IS SORTING OUT LOCATION NOW. CONTINUE IM ZYPREXA ON D/C. FAMILY MEMEBERS TO ADMINISTER IN THE HOME SETTING. PROVIDER TO INCLUDE CURRENT ZYPREXA REGIMENT ON HOSPICE ADMISSION ORDERS. PC TO REMAIN AVAILABLE NEEDED. UPDATE PROVIDED TO PRIMARY RN.
--- NOTE | 2024-10-02 18:28 | NUR ---
pt has cont to be very pleasent and cooperative, was medicated per routine mar and for pain, family cont to be at bedside and assisting with care. pallative care spoke with MD and pt has been transitioned to comfort care, family is aware and pleased. suppositoy given for constipation and was affective pt had medium BM. roxinol given for pain, pt stefan well and has been pleasent sincew.
--- NOTE | 2024-10-02 19:15 | NUR ---
RECEIVED BEDSIDE REPORT. PT IN BED. FAMILY AT BEDSIDE. ON RA. WILL PROVIDE COMFORT MEASURES T/O SHIFT. FAMILY ENCOURAGED TO USE CALL LT FOR NEEDS. CALL LT IN REACH.
--- NOTE | 2024-10-02 20:00 | NUR ---
IM ZYREXA GIVEN PER EMAR ORDER. FAMILY REQUESTED STATING HE SEEMS TO BECOMING AGITATED. 10 MG ROXANOL GIVEN FOR PAIN. WILL CONTINUE TO PROVIDE COMFORT MEASURES. CALL LT IN REACH OF FAMILY.
--- NOTE | 2024-10-02 22:05 | NUR ---
2 MG OF ORAL HALDOL GIVEN FOR AGITATION. FAMILY AT BEDSIDE. CALL LT IN REACH.
--- NOTE | 2024-10-03 00:18 | NUR ---
PT IN BED ATTEMPTING TO SWING LEGS OVER BED AT TIMES PER PT'S SON. ROXANOL GIVEN TO PT FOR COMFORT. WILL CONTINUE TO PROVIDE COMFORT MEASURES.
--- NOTE | 2024-10-03 01:47 | NUR ---
PT APPEARS TO BE RESTING QUIETLY. SON AND DAUGHTER AT BEDSIDE RESTING. CALL LT IN REACH.
--- NOTE | 2024-10-03 03:13 | NUR ---
PT RESTING QUIETLY. FAMILY AT BEDSIDE.
--- NOTE | 2024-10-03 04:11 | NUR ---
SHIFT SUMMARY: PT RESTED OFF AND ON. MEDICATED PT WITH 2MG ORAL HALDOL FOR RESTLESSNESS, ROXANOL FOR PAIN; PAIN CONTROLLED. REPOSITIONED FOR COMFORT. PT COOPERATIVE WITH CARE. WILL CONTINUE TO PROVIDE CARE UNTIL SHIFT REPORT. CALL LT WITHIN REACH OF PATIENT AND FAMILY.
--- NOTE | 2024-10-03 05:04 | NUR ---
PT CONTINUES TO REST QUIETLY. FAMILY AT BEDSIDE. CALL LT IN REACH.
--- NOTE | 2024-10-03 06:28 | NUR ---
FAMILY DECLINED PERSONAL CARE FOR THE PT AT THIS TIME. STATES HE JUST FELL ASLEEP NOT TOO LONG AGO. FAMILY WILL USE CALL LT FOR NEEDS. CALL LT IN REACH.
--- NOTE | 2024-10-03 08:04 | NUR ---
assumed care of pt, family at bedside, pt still seems a little uncomfortable and tenses up when touched, but is calm and cooperative with care. possible rivera placement this afternoon when pt more calm to prevent agitation. .
--- NOTE | 2024-10-03 15:07 | NUR ---
SUPPORTIVE VISIT MET WITH PT'S DTR, LUIS MANUEL IN THE LOBBY THIS MORNING. PROVIDED THERAPUTIC LISTENING. LUIS MANUEL IS DISPLAYING SIGNS OF PLUMBER GASFITTER FATIGUE. GENTLE EDUCATION FOR LUIS MANUEL SURROUNDING SELF CARE. SHE DENIES ANY ACUTE NEEDS AT THIS TIME.
--- NOTE | 2024-10-03 15:10 | NUR ---
CONVERSATION WITH BUSINESS SERVICES MANAGER AND BREAKFAST HOSTESS RE: DISCHARGE PLAN AND MEDICATION MANAGEMENT FOR PT'S ANXIETY AND AGGITATION. BREAKFAST HOSTESS REPORTS IM ZYPREXA IS NOT AVAILABLE BY ANY PHARMACY FOR SEVERAL DAYS. HOSPICE PROVIDER, DR. KERN TO CONSULT WITH HOSPITALIST, DR. AKINS THIS AFTER RE: OTHER MEDICATION OPTIONS TO REPLACE IM ZYPREXA. SUPPORTIVE VISIT THIS AFTERNOON. BEDSIDE RN IN THE ROOM TO ADMINISTER ZYPREXA IM SCHEDULED PER EMAR. PT WAS STARTLED AWAKE WHEN HIS BED WAS MOVED. AT THIS TIME, HE DID NOT WANT TO PARTICIPATE IN CARES. PT'S DTR LUIS MANUEL HAD STEPPED OUT FOR LUNCH. HIS OTHER DTR WAS AT BEDSIDE WATCHING TV PT RESTED. PC TO REMAIN AVAILABLE NEEDED.
--- NOTE | 2024-10-03 15:36 | NUR ---
Patient is sleeping. Dtr's Bettina and Enio are bedside. I have seen patient in an unofficial capacity as I have walked through the hallways often. The patient though must have picked up on my name because he has been asking for me for a couple of days but especially last night (according to Bettina and brother Leonidas). Bettina and Enio explain about how emotionally and physically exhausted they are and proceed to tell me several stories about their dad and his personality. Bettina speaks about her Anglican marian and that the patient grew up [employer] but only retained his belief in God but not so much in the Mosque. I encouraged self-care, and provided space for life review, laughter and expressions of love, as well as, providing a calming and supportive presence. Spiritual care will remain available.
--- NOTE | 2024-10-03 19:52 | NUR ---
attempted to move pt this afternoon and pt grew agitated and i just had to leave room to prevent escalation. rivera was not placed, pt very difficult to assess do to volatility. family at bedsied to assist with monitoring and call when needing assistence. pt has refused all food or drink when offered.
--- NOTE | 2024-10-04 04:33 | NUR ---
PROGRAM COORDINATOR FOR [facility]ID[facility] LIFE SUMMARY: PT AROUSABLE WITH CARE. MUMBLED NONSENSICAL SPEECH. ABLE TO NOD HEAD AT TIMES TO Y/N QUESTIONS. PT RESTED OFF AND ON. ALTERNATED WITH MEDICATING PT WITH ORAL HALDOL AND IM ZYPREXA X1 FOR RESTLESSNESS, ROXANOL FOR PAIN; PAIN CONTROLLED. REPOSITIONED FOR COMFORT. NEW ORDER FOR ZYPREXA 5MG PO Q6H, MAY CRUSH AND GIVE WITH SMALL AMT OF LIQUID. PT COOPERATIVE WITH CARE. WILL CONTINUE TO PROVIDE CARE UNTIL SHIFT REPORT. CALL LT WITHIN REACH OF PATIENT AND FAMILY. BED IN LOWEST POSITION. POSSIBLE D/C TO MEMORY CARE WITH HOSPICE. CARES CONTINUE ORDERED.
[2024-10-04] MEDS ORDERED: OLANZapine 5 MG Tab PO SCH (06:00)
[2024-10-04] MEDS ORDERED: ACET120S PR (11:29)
[2024-10-04] MEDS ORDERED: IPRAT-ALBUT 0.5-3 ML INH (11:34)
[2024-10-04] MEDS ORDERED: ATROPINE SULFATE2 M1 SL (11:36)
[2024-10-04] MEDS ORDERED: HALO2 PO (11:37)
[2024-10-04] MEDS ORDERED: MORP20L SL (11:39)
[2024-10-04] MEDS ORDERED: OLAN5 PO (11:40)
[2024-10-04] MEDS ORDERED: TRANSDERM-SCOP1 EA13 TD (11:41)
--- NOTE | 2024-10-04 13:24 | NUR ---
DISCHARGE NOTE OTIS BEING DISCHARGED TO [facility] ON HOSPICE. ANIME DESIGNER ARRANGED DISCHARGE PACKET AND POLST. REPORT CALLED TO EVANS AT [facility]. NO IV TO REMOVE. PATIENT TRANPORTED VIA GURNEY. FAMILY AWARE OF PATIENTS ARRANGED TRANSPORTATION AT 1300.
== END 2024-10-04 13:20 | disposition hospice, home (50) | DRG 481 ==
LOC: ER 12:01 → ERHOLD 17:59 → MEDS 17:59 → SURS 17:59 → MEDS 09-27 15:04 → ENPENDDIS 10-04 10:37 → MEDS 10-04 13:20
PROVIDERS: Hospitalist; Orthopaedic Surgery Sports Medicine; Student in an Organized Health Care Education/Training Program; ADMIT Internal Medicine
PROC: 0QS634Z Reposition Right Upper Femur with Internal Fixation Device, Percutaneous Approach (ICD-10-PCS; principal; 2024-09-22 12:00)
DX: S72.031A Displaced midcervical fracture of right femur, initial encounter for closed fracture (principal); F02.818 Dementia in other diseases classified elsewhere, unspecified severity, with other behavioral disturbance; J44.1 Chronic obstructive pulmonary disease with (acute) exacerbation; Z66 Do not resuscitate; Z51.5 Encounter for palliative care; Z78.1 Physical restraint status; I49.5 Sick sinus syndrome; Z68.25 Body mass index [BMI] 25.0-25.9, adult; I25.10 Atherosclerotic heart disease of native coronary artery without angina pectoris; N40.0 Benign prostatic hyperplasia without lower urinary tract symptoms; G30.9 Alzheimer's disease, unspecified; I73.9 Peripheral vascular disease, unspecified; D63.8 Anemia in other chronic diseases classified elsewhere; R62.7 Adult failure to thrive; R29.6 Repeated falls; W18.30XA Fall on same level, unspecified, initial encounter; I25.2 Old myocardial infarction
CPT/HCPCS: 36415; 51702; 70450; 73502; 80048; 80053; 81001; 83735; 84100; 85014; 85018; 85025; 85027; 85610; 85730; 87086; 93005; 93010; 94640; 94664; 94760; 94762; 96374-59; 97116; 97162; 97530; 99285-25; A9270; C1713; C1769; J0171; J0690; J1100; J1171; J1885; J2060; J2250; J2371; J2405; J2704; J3010; J7030; J7120